=== PATIENT | female | born 1940 | race Caucasian/White ===

== ENCOUNTER → 2018-09-23 13:55 | Outpatient (CLI) | payer MEDICARE, SELFPAY ==
--- NOTE | 2018-09-23 14:00 | BI_ITS ---
MAMMOGRAPHY - BILATERAL SCREENING REASON FOR EXAM: Female, 78 years old. Routine annual screening examination. PERTINENT HISTORY: Non-contributory. TECHNIQUE: Digital bilateral breast anastasia (3D mammographic acquisition) in the CC and MLO projections. 2-D mediolateral oblique (MLO) and craniocaudad (CC) views of both breasts were obtained. CAD: Full Field Digital Mammography with Computer Added Detection was performed. COMPARISON: Comparison is made with prior study dated July 17, 2017 and June 15, 2016. FINDINGS: Breast Composition: The breasts are almost entirely fatty. There are no dominant masses or suspicious calcifications. No other significant abnormalities are identified. There has been no significant change since the prior study. BI/SCREENING MAMM (CAD), BILAT IMPRESSION: Stable bilateral screening mammogram. Yearly follow-up mammogram recommended. (A) ASSESSMENT CATEGORY: BIRADS Category 1: Negative. A letter regarding these results will be sent to the patient by the facility within 30 days. Approximately 10% of breast cancers are not detected by mammography. A normal mammogram should not delay biopsy of a clinically suspicious abnormality. [id number] Electronically Signed: Pérez Cordero MD at 15:56 EST , Service support ,
--- NOTE | 2018-09-23 14:00 | BD_ITS ---
STUDY: DUAL ENERGY X-RAY ABSORPTIOMETRY / DXA REASON FOR EXAM: Female, 78 years old. Early menopause. Loss of height. TECHNIQUE: Bone Mineral Density (BMD) measurements of lumbar spine and bilateral hips were obtained. COMPARISON: Comparison made with prior study dated April 26, 2016. FINDINGS: Lumbar Spine (L1-L4): g/cm2 (1.031) / T-score (-1.4) / Z-score (0.4) Findings are suggestive of osteopenia with a low fracture risk. Left Femur Total: g/cm2 (0.865) / T-score (-1.1) / Z-score (0.9) Left Femoral Neck: g/cm2 (0.905) / T-score (-1.0) / Z-score (1.2) Right Femur Total: g/cm2 (0.839) / T-score (-1.3) / Z-score (0.7) Right Femoral Neck: g/cm2 (0.864) / T-score (-1.2) / Z-score (0.9) The T-Scores on the most recent prior examination were: Lumbar Spine (L1-L4): There has been worsening of bone density since the previous examination. Left Femur Total: which represents a worsening of 3.1%. Right Femur Total: which represents a worsening of 0.8%. BD/Dexa Bone Density Study IMPRESSION: The patient is considered osteopenic as outlined below according to World Gregorio Organization (WHO) criteria with a low fracture risk. There has been worsening of bone density since the previous examination. Reference Information: The T-score is the number of standard deviations above or below the standard which is normal for young adults at their peak bone mineral density. The World Health Organization (WHO) interprets the T-scores as follows: Above -1 Normal bone density Between -1 and -2.5 Osteopenia Equal to / or below -2.5 Osteoporosis As a practical clinical guideline, osteopenia may be graded as follows: Mild -1 through -1.5 Moderate -1.6 through -2.0 Severe -2.1 through -2.4 The Z-score is the number of standard deviations above or below age-matched controls. A Z-score of less than -1.5 would be considered abnormal. References: 1. NIH Osteoporosis and Related Bone Diseases http://www.osteo.org 2. International Society for Clinical Densitometry http://www.iscd.org 3. National Osteoporosis Foundation http://www.nof.org Electronically Signed: Pérez Cordero MD at 14:35 EST , Service support ,
== END ==
PROVIDERS: Family Provider Internal Medicine; PCP Internal Medicine; Referring Provider Internal Medicine; Visit Provider Internal Medicine
DX: Z78.0 Asymptomatic menopausal state (principal); Z12.31 Encounter for screening mammogram for malignant neoplasm of breast
CPT/HCPCS: 77063; 77067; 77080

== ENCOUNTER → 2018-10-10 07:47 | Outpatient (CLI) | payer MEDICARE, SELFPAY ==
[2018-10-10 08:29] LABS: Absolute Lymphocyte Count 2.48 X10^3/ul (0.83-4.51); Basophil# 0.11 X10^3/uL; Basophil% 1.7 % (0-1); Eosinophil# 0.26 X10^3/uL; Eosinophils% 4.1 % (0-5); Hematocrit 43.7 % (37-47); Hemoglobin 13.8 g/dl (12.0-15.0); Lymphocyte # 2.48 X10^3/ul (4.0); Lymphocyte % 39.4 % (19-41); Mean Corp Hgb Conc 31.6 g/gl (32-36); Mean Corpuscular Hgb 30.9 pg (27.0-32.0); Mean Corpuscular Volume 97.8 fL (81-99); Mean Platelet Vol. 9.6 fl (6.2-12.0); Monocyte# 0.42 X10^3/uL; Monocyte% 6.7 % (0-10); Neutrophil # 3.02 X10^3/uL (2.7-7.7); Neutrophil % 48.1 % (47-70); Platelet Count 296 K/mm3 (150-450); RBC Distribution Width CV 13.8 % (11.6-14.6); RBC Distribution Width SD 49.2 fl (35.1-43.9); Red Blood Count 4.47 M/mm3 (4.2-5.4); White Blood Count 6.3 K/mm3 (4.4-11.0)
[2018-10-10 08:34] LABS: POSITIVE COUNT NO; POSITIVE DIFFERENTIAL NO; POSITIVE MORPHOLOGY NO
[2018-10-10 08:56] LABS: ALB/GLOB Ratio 0.9 RATIO (0.9-2.4); AST(SGOT) 15 U/L (15-37); Alanine Aminotransfer ALT/SGPT 16 U/L (13-56); Albumin, Serum 3.6 g/dL (3.2-5.0); Alkaline Phosphatase 90 U/L (45-117); Anion Gap 9 (5-15); BUN 18 mg/dL (7-18); Chloride 106 mmol/L (98-107); EST Glomerular Filtration Rate 57 mL/min (>60); Est Glom Filt Rate - Afr Amer 69 mL/min (>60); Free T3 2.7 pg/mL (2.18-3.98); Globulin 4.2 g/dL (2.2-4.2); Glucose 85 mg/dL (74-106); Protein, Total 7.8 g/dL (6.4-8.2); Sodium Level 143 mmol/L (136-145); T4 Free Direct 1.16 ng/dL (0.76-1.46); Thyroid Stim Hormone (TSH) 2.91 uIU/mL (0.358-3.74)
[2018-10-13 12:07] LABS: CHOLESTEROL TOTAL 241 mg/dL (100-199); HDL-C 71 mg/dL (>39); HDL-P TOTAL 39.4 umol/L (>=30.5); SMALL LDL-P 299 nmol/L (<=527); TRIGLYCERIDES 115 mg/dL (0-149)
[2018-10-13 12:15] LABS: INSULIN RESISTANCE SCORE <25 (<=45); LDL SIZE 21.7 nm (>20.5); LDL-C 147 mg/dL (0-99); LDL-P 1286 nmol/L (<1000)
== END ==
PROVIDERS: Family Provider Internal Medicine; PCP Internal Medicine; Referring Provider Internal Medicine; Visit Provider Internal Medicine
DX: E03.9 Hypothyroidism, unspecified (principal); E78.00 Pure hypercholesterolemia, unspecified; E55.9 Vitamin D deficiency, unspecified
CPT/HCPCS: 36415; 80053; 80061; 82306; 83704; 84439; 84443; 84481; 85025

== ENCOUNTER → 2018-10-29 12:38 | Outpatient (CLI) | payer MEDICARE, SELFPAY ==
--- NOTE | 2018-10-29 12:40 | CDU_ITS ---
Reason For Study: STENOSIS Rt. Velocities/BP Lt. Velocities/BP Prox CCA 75/16 cm/sec. Prox CCA 70/23 cm/sec. Mid CCA 63/15 cm/sec. Mid CCA 65/15 cm/sec. Dist CCA 59/15 cm/sec. Dist CCA 69/20 cm/sec. Prox ICA 43/15 cm/sec. Prox ICA 74/20 cm/sec. Mid ICA 65/20 cm/sec. Mid ICA 72/25 cm/sec. Dist ICA 42/15 cm/sec. Dist ICA 40/14 cm/sec. Rt. ICA/CCA = 1.2. Lt. ICA/CCA = .9. Prox ECA 92/15 cm/sec. Prox ECA 68/12 cm/sec. Rt. Vert. 48/14 cm/sec. Lt. Vert. 41/10 cm/sec. Right Extracranial There is intimal thickening but no significant atherosclerotic plaque noted in the right common carotid artery. There is heterogeneous, irregular atherosclerotic plaque noted in the right internal carotid artery. There is no significant atherosclerotic plaque noted in the right external carotid artery. Antegrade flow is noted in the right vertebral artery. Left Extracranial There is intimal thickening but no significant atherosclerotic plaque noted in the left common carotid artery. There is heterogeneous, irregular atherosclerotic plaque noted in the left internal carotid artery. There is heterogeneous, irregular atherosclerotic plaque noted in the left external carotid artery. Antegrade flow is noted in the left vertebral artery. Procedure Carotid Duplex 19994. Exam performed in department. Interpretation Summary Minimal plague bilateral proximal internal carotids with <50% stenosis. <50% stenosis bilateral external carotids Patent and antegrade vertebrals bilaterally No change from 09/07/15 Ordering Physician: Pooja Edwards Referring Physician: Pooja Edwards Performed By: Radha Bernabe, RDCS, RVT
== END ==
PROVIDERS: Family Provider Internal Medicine; PCP Internal Medicine; Referring Provider Internal Medicine; Visit Provider Internal Medicine
DX: I65.23 Occlusion and stenosis of bilateral carotid arteries (principal)
CPT/HCPCS: 93880

== ENCOUNTER → 2020-04-07 08:36 | Outpatient (CLI) | payer MEDICARE, SELFPAY ==
[2020-04-07 09:26] LABS: Absolute Lymphocyte Count 1.86 X10^3/uL (0.83-4.51); Absolute Neutrophil Count 3.8 X10^3/uL (2.0-7.7); Basophil# 0.12 X10^3/uL; Basophil% 1.8 % (0-1); Eosinophil# 0.34 X10^3/uL; Eosinophils% 5.1 % (0-5); Hematocrit 43.5 % (37-47); Hemoglobin 13.6 g/dL (12.0-15.0); Lymphocyte # 1.86 X10^3/ul (4.0); Lymphocyte % 28.1 % (19-41); Mean Corp Hgb Conc 31.3 g/dL (32-36); Mean Corpuscular Hgb 30.5 pg (27.0-32.0); Mean Corpuscular Volume 97.5 fL (81-99); Mean Platelet Vol. 9.5 fl (6.2-12.0); Monocyte# 0.48 X10^3/uL; Monocyte% 7.3 % (0-10); NRBC Flagged by Analyzer 0 % (0-5); Neutrophil % 57.5 % (47-70); Platelet Count 302 K/mm3 (150-450); RBC Distribution Width CV 13.2 % (11.6-14.6); RBC Distribution Width SD 47.5 fl (35.1-43.9); Red Blood Count 4.46 M/mm3 (4.2-5.4); White Blood Count 6.6 K/mm3 (4.4-11.0)
[2020-04-07 10:08] LABS: ALB/GLOB Ratio 0.8 RATIO (0.9-2.4); AST(SGOT) 19 U/L (15-37); Alanine Aminotransfer ALT/SGPT 15 U/L (13-56); Albumin, Serum 3.5 g/dL (3.2-5.0); Alkaline Phosphatase 93 U/L (45-117); Anion Gap 4 (5-15); BUN 20 mg/dL (7-18); BUN/Creat Ratio 18.5 RATIO (10-20); Calcium,Total 9.1 mg/dL (8.5-10.1); Chloride 105 mmol/L (98-107); Cholesterol 219 mg/dL (200); Creatinine, Serum 1.08 mg/dL (0.55-1.02); EST Glomerular Filtration Rate 52 mL/min (>60); Est Glom Filt Rate - Afr Amer 63 mL/min (>60); Globulin 4.5 g/dL (2.2-4.2); Glucose 87 mg/dL (74-106); High Density Lipoprotein 71 mg/dL; Potassium 3.8 mmol/L (3.5-5.1); Sodium Level 139 mmol/L (136-145); Thyroid Stim Hormone (TSH) 2.95 uIU/mL (0.358-3.74); Triglycerides 116 mg/dL; Very Low Density Lipoprotein 23 mg/dL (5-40)
[2020-04-07 10:16] LABS: Vitamin D,25 Hydroxy 97.3 ng/mL
== END ==
PROVIDERS: PCP Internal Medicine; Referring Provider Internal Medicine; Visit Provider Internal Medicine
DX: E03.9 Hypothyroidism, unspecified (principal); E55.9 Vitamin D deficiency, unspecified; E78.00 Pure hypercholesterolemia, unspecified; J44.9 Chronic obstructive pulmonary disease, unspecified
CPT/HCPCS: 36415; 80053; 80061; 82306; 84443; 85025

== ENCOUNTER → 2021-02-28 10:49 | Outpatient (CLI) | payer MEDICARE, SELFPAY ==
--- NOTE | 2021-02-28 10:51 | BI_ITS ---
MAMMOGRAPHY - BILATERAL SCREENING REASON FOR EXAM: Female, 80 years old. Routine annual screening examination. PERTINENT HISTORY: Non-contributory. TECHNIQUE: Digital bilateral breast windy (3D mammographic acquisition) in the CC and MLO projections. 2-D mediolateral oblique (MLO) and craniocaudad (CC) views of both breasts were obtained. CAD: Full Field Digital Mammography with Computer Added Detection was performed. COMPARISON: Comparison is made with prior study dated 09/23/2018 and 07/17/2017. FINDINGS: Breast Composition: The breasts are almost entirely fatty. There are no dominant masses or suspicious calcifications. No other significant abnormalities are identified. There has been no significant change since the prior study. BI/SCRN MAMM (CAD)W/WINDY BILAT IMPRESSION: Stable bilateral screening mammogram. Yearly follow-up mammogram recommended. (A) ASSESSMENT CATEGORY: BIRADS Category 1: Negative. A letter regarding these results will be sent to the patient by the facility within 30 days. Approximately 10% of breast cancers are not detected by mammography. A normal mammogram should not delay biopsy of a clinically suspicious abnormality. [id number] Electronically Signed: Pérez Cordero MD at 11:50 EDT , Service support ,
--- NOTE | 2021-02-28 10:59 | BD_ITS ---
STUDY: DUAL ENERGY X-RAY ABSORPTIOMETRY / DXA REASON FOR EXAM: Female, 80 years old. Z780. The patient is postmenopausal. TECHNIQUE: Bone Mineral Density (BMD) measurements of lumbar spine and bilateral hips were obtained. COMPARISON: Comparison is made with prior study dated 09/23/2018 and 04/26/2016. FINDINGS: Lumbar Spine (L1-L4): g/cm2 (0.872) / T-score (-1.6) / Z-score (1.2) Findings are suggestive of osteopenia with a moderate fracture risk. Left Femur Total: g/cm2 (0.758) / T-score (-1.5) / Z-score (0.7) Left Femoral Neck: g/cm2 (0.712) / T-score (-1.2) / Z-score (1.2) Right Femur Total: g/cm2 (0.763) / T-score (-1.5) / Z-score (0.8) Right Femoral Neck: g/cm2 (0.695) / T-score (-1.4) / Z-score (1.0) The T-Scores on the most recent prior examination were: Lumbar Spine (L1-L4): There has been worsening of bone density since the previous examination. Left Femur Total: which represents a worsening of 5.6%. Right Femur Total: which represents a worsening of 1.8%. BD/Dexa Bone Density Study IMPRESSION: The patient is considered osteopenic as outlined below according to World Gregorio Organization (WHO) criteria with a moderate fracture risk. There has been worsening of bone density since the previous examination. Reference Information: The T-score is the number of standard deviations above or below the standard which is normal for young adults at their peak bone mineral density. The World Health Organization (WHO) interprets the T-scores as follows: Above -1 Normal bone density Between -1 and -2.5 Osteopenia Equal to / or below -2.5 Osteoporosis As a practical clinical guideline, osteopenia may be graded as follows: Mild -1 through -1.5 Moderate -1.6 through -2.0 Severe -2.1 through -2.4 The Z-score is the number of standard deviations above or below age-matched controls. A Z-score of less than -1.5 would be considered abnormal. References: 1. NIH Osteoporosis and Related Bone Diseases www osteo.org 2. International Society for Clinical Densitometry www iscd.org 3. National Osteoporosis Foundation www nof.org Electronically Signed: Pérez Cordero MD at 14:42 EDT , Service support ,
== END ==
PROVIDERS: PCP Internal Medicine; Referring Provider Internal Medicine; Visit Provider Internal Medicine
DX: Z78.0 Asymptomatic menopausal state (principal); Z12.31 Encounter for screening mammogram for malignant neoplasm of breast
CPT/HCPCS: 77063; 77067; 77080

== ENCOUNTER → 2021-03-14 11:27 | Outpatient (CLI) | payer MEDICARE, SELFPAY ==
[2021-03-14 11:48] LABS: Potassium 4.8 mmol/L (3.5-5.1)
== END ==
PROVIDERS: PCP Internal Medicine; Visit Provider Internal Medicine
DX: E87.5 Hyperkalemia (principal)
CPT/HCPCS: 84132

== ENCOUNTER → 2021-03-21 12:46 | Outpatient (CLI) | payer MEDICARE, SELFPAY ==
--- NOTE | 2021-03-21 12:51 | CDU_ITS ---
Reason For Study: Bilateral carotid artery stenosis Rt. Velocities/BP Lt. Velocities/BP Prox CCA 68.2/13.4 cm/sec. Prox CCA 69.5/16.8 cm/sec. Mid CCA 59.1/13.4 cm/sec. Mid CCA 59.6/14.6 cm/sec. Dist CCA 52.5/13.4 cm/sec. Dist CCA 48.7/13.5 cm/sec. Prox ICA 46/14.7 cm/sec. Prox ICA 66.2/19 cm/sec. Mid ICA 70.8/26.5 cm/sec. Mid ICA 50.4/15.4 cm/sec. Dist ICA 56.5/18.6 cm/sec. Dist ICA 66.4/23 cm/sec. Rt. ICA/CCA = 1.2. Lt. ICA/CCA = 1.1. Prox ECA 65.6/9.5 cm/sec. Prox ECA 55.2/10.2 cm/sec. Rt. Vert. 53.1/15.7 cm/sec. Lt. Vert. 49.4/11.6 cm/sec. Right Extracranial There is homogeneous, smooth atherosclerotic plaque noted in the right common carotid artery. There is heterogeneous, irregular atherosclerotic plaque noted in the right internal carotid artery. There is intimal thickening but no significant atherosclerotic plaque noted in the right external carotid artery. Antegrade flow is noted in the right vertebral artery. Left Extracranial There is intimal thickening but no significant atherosclerotic plaque noted in the left common carotid artery. There is heterogeneous, irregular atherosclerotic plaque noted in the left internal carotid artery. There is heterogeneous, irregular atherosclerotic plaque noted in the left external carotid artery. Antegrade flow is noted in the left vertebral artery. Procedure Carotid Duplex [id number]. This is a Carotid Duplex examination using B-mode, color flow and specral Doppler. Exam performed in department. VL/Carotid Duplex Ultrasound Interpretation Summary Irregular calcific plaque at the proximal right internal carotid artery with le ss than 50% stenosis. Less than 50% stenosis right external carotid artery Irregular heterogenous plaque in the proximal left internal carotid artery with a less than 50% stenosis. Less than 50% stenosis left external carotid artery Patent and antegrade vertebral arteries bilaterally No change from October 29, 2018 Ordering Physician: Pooja Edwards Referring Physician: Pooja Edwards Performed By: Nimo Montana RVT
== END ==
PROVIDERS: PCP Internal Medicine; Referring Provider Internal Medicine; Visit Provider Internal Medicine
DX: I65.23 Occlusion and stenosis of bilateral carotid arteries (principal)
CPT/HCPCS: 93880

== ENCOUNTER 2021-09-30 10:29 | Observation (INO) | payer MEDICARE, SELFPAY ==
[2021-09-30] VITALS (14 sets, daily range): BP systolic 83–213; BP diastolic 48–110; PULSE 68–110; RESP 16–18; TEMP 36.6–36.8; O2SAT 95–98; BMI 17.8
--- NOTE | 2021-09-30 10:51 | CT_ITS ---
HISTORY: Dizziness. TECHNIQUE: Multiple axial images were obtained of the brain without intravenous contrast. A radiation dose optimization technique was used for this scan. # of images incl. paperwork: 232. COMPARISON: None. FINDINGS: BRAIN PARENCHYMA:Multiple small foci and zones of low attenuation in the cerebral white matter most compatible with chronic small vessel ischemic gliosis. INTRACRANIAL HEMORRHAGE: No acute intracranial hemorrhage. CSF SPACES/MASS EFFECT: Diffuse atrophy with compensatory ventricular enlargement. No midline shift or other significant mass effect. ORBITS: Bilateral lens resections. CALVARIUM: Intact. PARANASAL SINUSES AND MASTOID AIR CELLS: Clear. CT/Brain/Head without Contrast IMPRESSION: No acute intracranial process identified. Chronic small vessel ischemic gliosis. Individualized dose optimization techniques were used for this CT. at 1124 Reported and signed by: Ariana Simms MD Electronically Signed: Ariana Simms MD at 11:23 EST ,
--- NOTE | 2021-09-30 10:52 | EKG12_ITS ---
Test Reason : Blood Pressure : / mmHG Vent. Rate : 067 BPM Atrial Rate : 067 BPM P-R Int : 112 ms QRS Dur : 074 ms QT Int : 438 ms P-R-T Axes : 070 -10 076 degrees QTc Int : 462 ms Sinus rhythm with Premature atrial complexes in a pattern of bigeminy Otherwise normal ECG Confirmed by VALERIE العلي, JAYLAN ([id number]), brands editor STEVEN ERICKSON ([id number]) on 10/02/2021 12:18:48 PM Referred By: MEL Confirmed By:JAYLAN PADILLA MD
--- NOTE | 2021-09-30 10:54 | EDS_ITS ---
HPI History of Present Illness Chief Complaint: Dizziness Informant: patient Onset/Context/Timing Onset: Month(s) Context: Sudden Onset Timing: Intermittent Current Severity: Mild Maximum Severity: Moderate Narrative Narrative: 81-year-old female states the last year she has had episodes of dizziness. She states she gets warm all over the room starts spinning and she is unable to ambulate. At times she has trouble focusing her eyes when this occurs. She has never had a stroke or mini stroke. She is never been formally diagnosed with vertigo. She has not had a formal work-up for this that she remembers. She denies any trouble moving her arms or legs. She denies any weakness or numbness. She denies any headache. At times she gets so dizzy she has fallen. Prior similar symptoms: Yes Recent Illness/Hospitalization: No PFSH PFS Medical History (Updated 09/30/21 @ 12:[address] Daniel Finch MD) Hypothyroidism Home Medications aspirin [Aspir-81] 81 mg PO DAILY 09/30/21 [History Last Taken Unknown] ergocalciferol (vitamin D2) 2,000 unit PO DAILY 09/30/21 [History Last Taken Unknown] levothyroxine [Synthroid] 50 mcg PO DAILY 09/30/21 [History Last Taken Unknown] meclizine 25 mg PO TID PRN #14 tab 09/30/21 [Rx Last Taken Unknown] ondansetron 4 mg PO Q6H PRN #7 tab 09/30/21 [Rx Last Taken Unknown] Allergy/AdvReac Type Severity Reaction Status Date / Time No Known Allergies Allergy Verified 09/30/21 10:33 Social History Smoking Status: Never smoker ROS ROS ED ROS Narrative No recent illness. Review of Systems ROS Unobtainable: Denies due to encephalopathy Constitutional Constitutional ED: Denies fever(s) Eyes Eyes: Denies change in vision ENT ENT ED: Denies ear pain Cardiovascular Cardiovascular: Denies chest pain Respiratory/Chest Respiratory/Chest: Denies dyspnea Gastrointestinal Gastrointestinal: Denies abdominal pain Genitourinary Genitourinary ED: Denies dysuria Musculoskeletal Musculoskeletal: Denies myalgias Integumentary Denies rash Neurologic Neurologic: Denies headache(s) Psychiatric Psychiatric: Denies depression Endocrine Endocrinology: Denies polyuria Allergic/Immunologic Allergic/Immunologic ED: Denies urticaria EXAM Physical Exam Narrative Exam Narrative: 81-year-old female no acute distress. Vital signs stable blood pressure is elevated 181/93. H EENT exam unremarkable. No facial droop. Normal speech. Neck nontender. No bruits appreciated. Lungs clear to auscultation bilaterally. Heart regular rate and rhythm no murmur rate of 75. Abdomen is no signs. Moving all 4 extremities. Calves are nontender without edema or cords. Back nontender. Neurologically she is awake and alert with no focal motor deficits. NIH score is 0. Const Vital Signs: 09/30/21 10:30 09/30/21 11:58 09/30/21 12:05 Temperature 97.9 F Temperature Source Temporal Pulse Rate 75 Pulse Rate [Lying] 70 Pulse Rate [Sitting] 80 Pulse Rate [Standing] 97 Respiratory Rate 18 Respiratory Pattern Normal Blood Pressure 181/93 H Blood Pressure [Lying] 177/94 H Blood Pressure [Sitting] 191/92 H Blood Pressure [Standing] 150/94 H Blood Pressure Mean 122 Blood Pressure Mean [Lying] 121 Blood Pressure Mean [Sitting] 125 Blood Pressure Mean [Standing] 112 Pulse Ox 96 Oxygen Delivery Method Room Air 09/30/21 12:56 Temperature Temperature Source Pulse Rate 77 Pulse Rate [Lying] Pulse Rate [Sitting] Pulse Rate [Standing] Respiratory Rate 16 Respiratory Pattern Blood Pressure 181/88 H Blood Pressure [Lying] Blood Pressure [Sitting] Blood Pressure [Standing] Blood Pressure Mean 119 Blood Pressure Mean [Lying] Blood Pressure Mean [Sitting] Blood Pressure Mean [Standing] Pulse Ox 95 Oxygen Delivery Method Room Air Positive well nourished and well developed; Negative for obese, cachectic, contractures or unkempt General Appearance ED: well developed and NAD; Negative for unkempt, cachectic, contractures, cyanotic, diaphoretic or pallor Nutritional Appearance: Negative for cachectic or obese HEENT Reports moist mucous membranes Negative for trauma or tenderness Eyes PERRL and EOMs intact bilaterally Neck no lymphadenopathy, supple and no JVD General: Negative for tenderness Chest Wall inspection of chest normal and palpation of chest normal Resp normal respiratory effort and clear to auscultation bilaterally Effort and Inspection: Negative for pain with movement Auscultation: Negative for rales, rhonchi or wheezes Cardio regular rate, regular rhythm, S1 normal heart sound, S2 normal heart sound and no murmurs GI normal to inspection, nondistended, normoactive bowel sounds, non-tender, non- distended and no masses Inspection: Negative for abdominal distention Auscultation: normoactive bowel sounds Palpation: soft; Negative for tender, guarding or rebound tenderness present Back/Spine no CVA tenderness Cervical Spine: Negative for cervical spine tenderness Thoracic Spine / Upper Back: Negative for thoracic spinal tenderness or paraspinal muscle tenderness Extremity normal to inspection General Extremety ED: Negative for edema or tenderness General Extremity: Negative for edema Neuro oriented x3 and CN's II-XII intact bilaterally Neuro Narrative: Hallpike maneuver really does not cause her significant symptoms at this time. Sensorium / Orientation: alert; Negative for orientation impaired, lethargic or stuporous Motor Exam: strength 5/5 throughout Psych mental status grossly normal Appearance: Negative for unkempt Attitude: No agitated Mood & Affect: Negative for depressed or tearful Skin no rashes or lesions noted and no wounds General Skin Exam: Negative for jaundice or pallor MDM MDM MDM Narrative Medical decision making narrative: 81-year-old female for last year has had transient episodes of dizziness. Her exam is benign. Currently her symptoms are very very mild. She has a normal neurologic exam. Her Hallpike maneuvers really not significant. CAT scan and labs are being obtained. Repeat exam patient is doing well at noon. She is having nausea she will be given IV Zofran and a dose of Antivert and then will attempt to ambulate the patient. Her work-up is negative. This will be treated as vertigo. Repeat exam patient does not recall to being discharged home notice her family are concerned she is a fall risk and has difficulty ambulating when she gets a vertiginous symptoms. I spoke to the hospitalist she will be observation admission to the PCU. Lab Data Attestation: I reviewed the patient's lab results. Lab results narrative: CBC normal. White count of 7. H&H of 14 and 43. Electrolytes normal gap of 4. BUN 26 creatinine 0.97. Glucose 106. Patient's elevated BUN and normal creatinine may be consistent with an early mild dehydration. Labs: Laboratory Results - last 24 hr 09/30/21 09/30/21 10:35 10:35 WBC 7.1 RBC 4.57 Hgb 14.6 Hct 43.6 MCV 95.4 MCH 31.9 MCHC 33.5 RDW Std Deviation 46.6 H RDW Coeff of Stephanie 13.2 Plt Count 329 MPV 9.7 Immature Gran % (Auto) 0.300 Neut % (Auto) 69.1 Lymph % (Auto) 21.6 [place] % (Auto) 5.7 Eos % (Auto) 2.2 Baso % (Auto) 1.1 H Absolute Neuts (auto) 4.9 Absolute Lymphs (auto) 1.54 Nucleated RBC % 0 Sodium 140 Potassium 4.4 Chloride 105 Carbon Dioxide 31.0 Anion Gap 4 L BUN 26 H Creatinine 0.97 Estim Creat Clear Calc 37.95 Est GFR (MDRD) Af Amer 70 Est GFR (MDRD) Non-Af 58 L BUN/Creatinine Ratio 26.7 H Glucose 106 Calcium 9.9 Radiography Diagnostic Testing: Clinical Impression(s) from Imaging Studies Brain CT 09/30/21 10:51 IMPRESSION: No acute intracranial process identified. Chronic small vessel ischemic gliosis. Individualized dose optimization techniques were used for this CT. at 1124 Reported and signed by: Ariana Simms MD Electronically Signed: Ariana Simms MD at 11:23 EST , ADDENDUM: 09/30/21 1240 IMPRESSION: No acute intracranial process identified. Chronic small vessel ischemic gliosis. Individualized dose optimization techniques were used for this CT. at 1124 Reported and signed by: Ariana Simms MD Electronically Signed: Ariana Simms MD at 11:23 EST , CAT scan of the brain without contrast is read by the radiologist and reviewed by me shows no acute abnormality. Rhythm Strip Rhythm Strip: Sinus Rhythm Rate: 67 Ectopy: PAC(s) EKG Initial EKG: Attestation: I personally reviewed and interpreted this EKG as follows: Interpretation: Sinus Rhythm and No Acute Injury Pattern Comments: Normal sinus rhythm rate of 67. PACs. No significant signs of RI nor ischemia. Prior EKG tracings: not available for review Discharge Plan Triage Chief Complaint: Dizziness ED Provider: Daniel Finch Dx/Rx/DC Orders Clinical Impression: Vertigo Instructions: ED BPV Vertigo Prescriptions: New meclizine 25 mg tablet 25 mg PO TID PRN (Reason: dizziness) Qty: 14 RF: 0 ondansetron 4 mg tablet,disintegrating 4 mg PO Q6H PRN (Reason: nausea and vomiting) Qty: 7 RF: 0 No Action aspirin [Aspir-81] 81 mg Tablet,Delayed Release (Dr/Ec) 81 mg PO DAILY RF: 0 levothyroxine [Synthroid] 50 mcg tablet 50 mcg PO DAILY RF: 0 ergocalciferol (vitamin D2) 1,000 unit Capsule 2,000 unit PO DAILY RF: 0 Primary Care Provider: Pooja Edwards Referrals: Pooja Edwards DO [Primary Care Provider] - 3-5 Days Activity Restrictions/Additional Instructions: Plenty of fluids and rest. Zofran as needed for nausea which you may swallow or let it dissolve under your tongue. Antivert as needed for the dizziness. I would use 1 pill 3 times a day for the next 3 days and then take it as needed. Follow-up with your doctor return emergency department if you are worse. Disposition Disposition: Home, Self Care
[2021-09-30 11:05] LABS: Absolute Lymphocyte Count 1.54 X10^3/uL (0.83-4.51); Absolute Neutrophil Count 4.9 X10^3/uL (2.0-7.7); Basophil# 0.08 X10^3/uL; Basophil% 1.1 % (0-1); Eosinophil# 0.16 X10^3/uL; Eosinophils% 2.2 % (0-5); Hematocrit 43.6 % (37-47); Hemoglobin 14.6 g/dL (12.0-15.0); Lymphocyte # 1.54 X10^3/ul (0.83-4.51); Lymphocyte % 21.6 % (19-41); Mean Corp Hgb Conc 33.5 g/dL (32-36); Mean Corpuscular Hgb 31.9 pg (27.0-32.0); Mean Corpuscular Volume 95.4 fL (81-99); Mean Platelet Vol. 9.7 fl (6.2-12.0); Monocyte# 0.41 X10^3/uL; Monocyte% 5.7 % (0-10); NRBC Flagged by Analyzer 0 % (0-5); Neutrophil # 4.93 X10^3/uL (2.7-7.7); Neutrophil % 69.1 % (47-70); Platelet Count 329 K/mm3 (150-450); RBC Distribution Width CV 13.2 % (11.6-14.6); RBC Distribution Width SD 46.6 fl (35.1-43.9); Red Blood Count 4.57 M/mm3 (4.2-5.4); White Blood Count 7.1 K/mm3 (4.4-11.0)
[2021-09-30 11:10] LABS: Anion Gap 4 (5-15); BUN 26 mg/dL (7-18); BUN/Creat Ratio 26.7 RATIO (10-20); Calcium,Total 9.9 mg/dL (8.5-10.1); Chloride 105 mmol/L (98-107); Creatinine, Serum 0.97 mg/dL (0.55-1.02); EST Glomerular Filtration Rate 58 mL/min (>60); Est Glom Filt Rate - Afr Amer 70 mL/min (>60); Estimated Creatinine Clearance 37.95 ml/min; Glucose 106 mg/dL (74-106); Potassium 4.4 mmol/L (3.5-5.1); Sodium Level 140 mmol/L (136-145)
[2021-09-30] MEDS: Ondansetron 4 MG/2 ML Vial IV (12:09)
[2021-09-30] MEDS: Meclizine HCl 25 MG Tablet PO (12:09)
--- NOTE | 2021-09-30 13:49 | HP.PCM.HOS_ITS ---
HPI - General General Date of Admission: 09/30/21 HPI Narrative LATOYA ANDERSON, is a 81 F with a PMh as outlined who presents with a complaint of dizziness. Dizziness started ~ 1 year ago, and says she gets warm over, and then the room starts spinning and she is unable to ambulate. She has never had a stroke or TIA, and says she has never been diagnosed with vertigo. Patient admitted to not eating and drinking well and this was corroborated by her [id number]. She is lost a lot of weight over the last year because she simply does not feel like eating or drinking. She hasnt been worked up for this vertigo before. She has had numerous falls over the last year and says she usually falls when she stands for a while and then feels dizzy.. She denied any numbness or tingling in any extremities or any weakness in any extremities. Vitals in the ED were blood pressure 181/88 with pulse rate of 77 and respiratory of 16 and she was saturating at 95% on room air. CBC and BMP were essentially unremarkable. CT of the brain showed no acute intracranial pathology. She has been admitted to manage for dizziness and vertigo likely due to dehydration and orthostatic hypotension with BPPV also a consideration. [facility] Medical History (Updated 09/30/21 @ 12:[address] Daniel Finch MD) Hypothyroidism Home Medications aspirin [Aspir-81] 81 mg PO DAILY 09/30/21 [History Last Taken Unknown] ergocalciferol (vitamin D2) 2,000 unit PO DAILY 09/30/21 [History Last Taken Unknown] levothyroxine [Synthroid] 50 mcg PO DAILY 09/30/21 [History Last Taken Unknown] meclizine 25 mg PO TID PRN #14 tab 09/30/21 [Rx Last Taken Unknown] ondansetron 4 mg PO Q6H PRN #7 tab 09/30/21 [Rx Last Taken Unknown] Allergy/AdvReac Type Severity Reaction Status Date / Time No Known Allergies Allergy Verified 09/30/21 10:33 Social History Smoking Status: Never smoker ROS Constitutional Constitutional: Reports chills; Denies anorexia, fatigue, fever(s), malaise or weakness Eyes Eyes: Denies blurry vision or change in vision ENT HEENT: Denies dysphagia, headache(s), nasal congestion or nasal discharge Cardiovascular Cardiovascular: Denies chest pain, dyspnea on exertion, lightheadedness, or thopnea, palpitations, paroxysmal nocturnal dyspnea, rapid heart rate or syncope Respiratory/Chest Respiratory/Chest: Denies cough or dyspnea Gastrointestinal Gastrointestinal: Reports nausea; Denies abdominal pain, coffee ground emesis, constipation, diarrhea or vomiting Genitourinary Genitourinary: Denies burning urination Musculoskeletal Musculoskeletal: Denies back pain, joint pain or joint stiffness Neurologic Neurologic: Reports dizziness; Denies confusion, focal weakness, headache(s), numbness, paresthesias, seizure-like activity, seizures or syncope Psychiatric Psychiatric: Denies anxiety or depression Allergic/Immunologic Allergic/Immunologic: Denies asthma Vital Signs Vital Signs Vital Signs: 09/30/21 10:30 09/30/21 11:58 09/30/21 12:05 Temperature 97.9 F Temperature Source Temporal Pulse Rate 75 Pulse Rate [Lying] 70 Pulse Rate [Sitting] 80 Pulse Rate [Standing] 97 Respiratory Rate 18 Respiratory Pattern Normal Blood Pressure 181/93 H Blood Pressure [Lying] 177/94 H Blood Pressure [Sitting] 191/92 H Blood Pressure [Standing] 150/94 H Blood Pressure Mean 122 Blood Pressure Mean [Lying] 121 Blood Pressure Mean [Sitting] 125 Blood Pressure Mean [Standing] 112 Pulse Ox 96 Oxygen Delivery Method Room Air 09/30/21 12:56 Temperature Temperature Source Pulse Rate 77 Pulse Rate [Lying] Pulse Rate [Sitting] Pulse Rate [Standing] Respiratory Rate 16 Respiratory Pattern Blood Pressure 181/88 H Blood Pressure [Lying] Blood Pressure [Sitting] Blood Pressure [Standing] Blood Pressure Mean 119 Blood Pressure Mean [Lying] Blood Pressure Mean [Sitting] Blood Pressure Mean [Standing] Pulse Ox 95 Oxygen Delivery Method Room Air Weight Weight: 120 lb 9.486 oz Body Mass Index (BMI) 20.0 Physical Exam Const alert, oriented x3 and no apparent distress General Appearance: cooperative HEENT normocephalic, head/scalp atraumatic and hearing grossly normal bilaterally HEENT Narrative: very dry oral mucosa Eyes PERRL, EOMs intact bilaterally and conjunctivae normal Neck no lymphadenopathy and supple Resp normal respiratory effort, no retractions, no use of accessory muscles and clear to auscultation bilaterally Cardio regular rate, regular rhythm, S1 normal heart sound and S2 normal heart sound GI normal to inspection, nondistended, normoactive bowel sounds, soft to palpation, non-tender and non-distended Extremity normal to inspection, full ROM and no clubbing, cyanosis or edema Peripheral Pulses: Yes pulses 2+ throughout Skin no rashes or lesions noted Neuro oriented x3, CN's II-XII intact bilaterally and moves all extremities Sensorium / Orientation: awake and alert Psych affect normal Results Lab / Micro Data Result Diagrams: 09/30/21 10:35 09/30/21 10:35 Labs: Laboratory Results - last 24 hr 09/30/21 10:35: WBC 7.1, RBC 4.57, Hgb 14.6, Hct 43.6, MCV 95.4, MCH 31.9, MCHC 33.5, RDW Std Deviation 46.6 H, RDW Coeff of Stephanie 13.2, Plt Count 329, MPV 9.7, Immature Gran % (Auto) 0.300, Neut % (Auto) 69.1, Lymph % (Auto) 21.6, [place] % (Auto) 5.7, Eos % (Auto) 2.2, Baso % (Auto) 1.1 H, Absolute Neuts (auto) 4.9, Absolute Lymphs (auto) 1.54, Nucleated RBC % 0 09/30/21 10:35: Sodium 140, Potassium 4.4, Chloride 105, Carbon Dioxide 31.0, Anion Gap 4 L, BUN 26 H, Creatinine 0.97, Estim Creat Clear Calc 37.95, Est GFR (MDRD) Af Amer 70, Est GFR (MDRD) Non-Af 58 L, BUN/Creatinine Ratio 26.7 H, Glucose 106, Calcium 9.9 Rhythm Strip Rhythm Strip: Sinus Rhythm Rate: 67 Ectopy: PAC(s) Radiology Impression Brain CT 09/30/21 10:51 IMPRESSION: No acute intracranial process identified. Chronic small vessel ischemic gliosis. Individualized dose optimization techniques were used for this CT. at 1124 Reported and signed by: Ariana Simms MD Electronically Signed: Ariana Simms MD at 11:23 EST Reading Location ID and State: [facility] / [place] Tel , Service support , ADDENDUM: 09/30/21 1240 IMPRESSION: No acute intracranial process identified. Chronic small vessel ischemic gliosis. Individualized dose optimization techniques were used for this CT. at 1124 Reported and signed by: Ariana Simms MD Electronically Signed: Ariana Simms MD at 11:23 EST , Assessment & Plan Assessment/Plan (1) Vertigo: PLAN: #Dizziness and vertigo likely due to dehydration, decreased intake and orthostatic hypotension * CT of the brain showed no acute intracranial process but showed chronic small vessel ischemic gliosis * This has been going on for 2 years and this current episode was similar to previous episodes was less likely due to a stroke * Admit to PCU * Consult PT OT. Fall precautions. * check orthostatics * On meclizine. We will continue. * She did have a carotid duplex in March 2021 which showed irregular calcific plaque at the proximal right internal carotid artery with less than 50% stenosis and less than 50% stenosis of the right external carotid artery and an irregular heterogeneous plaque in the proximal left internal carotid artery with less than 50% stenosis and less than 50% stenosis of the left external carotid artery with patent and antegrade vertebral arteries bilaterally and no change from carotid ultrasound in October 2018. * IV Zofran as needed * #Hypothyroidism: On Synthroid #Nicotine dependence: * Says she has been smoking less than a pack a day since she was 15 years. * Nicotine patch 14 mg daily. Counseled to quit. DVT prophylaxis: Lovenox CODE STATUS: DNR CCA no intubation * Patient counseled extensively about different types of CODE STATUS including full code, DNR CCA and DNR CCA. Patient elects to be DNRCCA no intubation, and says she has filled out paperwork for this previously already. * Total [id number] time 16 minutes. Charges/Coding Visit Charges OBSV E&M: 20866 Initial observation care L2 [facility] Codes Hospitalists' Procedures Procedures: 29005 Advncd Care Plan 30 Min
[2021-09-30] MEDS: 0.9% Normal Saline 1,000 ML 75 ML IV (16:18)
[2021-09-30] MEDS: Clonidine HCl 0.1 MG, Clonidine HCl 0.2 MG 0.3 MG PO (17:22)
[2021-09-30] MEDS: 0.9% Saline Lock 10 ML Syringe IV (17:22)
[2021-09-30] MEDS: amLODIPine 10 MG Tablet PO (17:22)
--- NOTE | 2021-09-30 17:30 | NURSING ---
Patient's daughter Bienvenido Devlin is okay to receive updates on patient status; Phone number is [phone]
[2021-09-30] MEDS: 0.9% Normal Saline 1,000 ML 125 ML IV (21:08)
[2021-10-01] VITALS (10 sets, daily range): BP systolic 94–155; BP diastolic 62–90; PULSE 57–90; RESP 16; TEMP 36.3–36.9; O2SAT 94–98
[2021-10-01] MEDS: Levothyroxine 50 MCG Tablet PO (06:04)
[2021-10-01 06:20] LABS: Absolute Lymphocyte Count 2.03 X10^3/uL (0.83-4.51); Absolute Neutrophil Count 3.2 X10^3/uL (2.0-7.7); Basophil# 0.06 X10^3/uL; Eosinophil# 0.28 X10^3/uL; Eosinophils% 4.7 % (0-5); Hemoglobin 11.5 g/dL (12.0-15.0); Lymphocyte # 2.03 X10^3/ul (0.83-4.51); Lymphocyte % 33.7 % (19-41); Mean Corp Hgb Conc 31.9 g/dL (32-36); Mean Corpuscular Hgb 30.8 pg (27.0-32.0); Mean Corpuscular Volume 96.5 fL (81-99); Mean Platelet Vol. 10.5 fl (6.2-12.0); Monocyte% 8.3 % (0-10); NRBC Flagged by Analyzer 0 % (0-5); Neutrophil # 3.15 X10^3/uL (2.7-7.7); Neutrophil % 52.3 % (47-70); Platelet Count 236 K/mm3 (150-450); RBC Distribution Width CV 13.5 % (11.6-14.6); RBC Distribution Width SD 48.2 fl (35.1-43.9); Red Blood Count 3.73 M/mm3 (4.2-5.4)
[2021-10-01 06:37] LABS: Anion Gap 2 (5-15); BUN 26 mg/dL (7-18); Calcium,Total 8.2 mg/dL (8.5-10.1); Chloride 112 mmol/L (98-107); Creatinine, Serum 0.84 mg/dL (0.55-1.02); EST Glomerular Filtration Rate 69 mL/min (>60); Est Glom Filt Rate - Afr Amer 83 mL/min (>60); Estimated Creatinine Clearance 38.85 ml/min; Glucose 79 mg/dL (74-106); Potassium 4.2 mmol/L (3.5-5.1); Sodium Level 138 mmol/L (136-145)
[2021-10-01] MEDS: Aspirin E.C. 81 MG Tablet PO (08:48)
[2021-10-01] MEDS: Enoxaparin 40 MG/0.4 ML Syringe SC (08:49)
[2021-10-01] MEDS: Cholecalciferol (VIT D3) 25 MCG TABLET (1,000 UNITS) 50 MCG PO (08:49)
--- NOTE | 2021-10-01 11:57 | PN.HOSP_ITS ---
Subjective Subjective Patient seen and examined. She had no active events overnight and felt well. Review of symptoms otherwise negative. Her orthostatics were positive yesterday and she was hydrated with IV fluids. Her blood pressure was markedly elevated in the 200 systolic so she was given a clonidine tablet of 0.3 mg x 1 and was started on p.o. amlodipine 10 mg daily. However her blood pressure plummeted to the 80s and 90s systolic. Amlodipine therefore on hold. Review of systems otherwise negative. Objective Data Objective Data Vital Signs: Vital Signs Temp Pulse Resp BP Pulse Ox 98.4 F 68 16 94/62 97 10/01/21 08:50 10/01/21 08:50 10/01/21 08:50 10/01/21 08:50 10/01/21 08:50 Oxygen Delivery Method Room Air Weight: 106 lb 14.787 oz Body Mass Index (BMI) 17.8 Intake & Output: Intake and Output for Last 24 Hours 09/29/21 09/30/21 10/01/21 23:59 23:59 23:59 Intake Total 1600.00 / 1600.00 1240 / 1240 Balance 1600.00 / 1600.00 1240 / 1240 Lab / Micro Data Result Diagrams: 10/01/21 05:28 10/01/21 05:28 Labs: Laboratory Results - last 24 hr 10/01/21 05:28: WBC 6.0, RBC 3.73 L, Hgb 11.5 L, Hct 36.0 L, MCV 96.5, MCH 30.8, MCHC 31.9 L, RDW Std Deviation 48.2 H, RDW Coeff of Stephanie 13.5, Plt Count 236, MPV 10.5, Immature Gran % (Auto) 0.000, Neut % (Auto) 52.3, Lymph % (Auto) 33.7, [place] % (Auto) 8.3, Eos % (Auto) 4.7, Baso % (Auto) 1.0, Absolute Neuts (auto) 3.2, Absolute Lymphs (auto) 2.03, Nucleated RBC % 0 10/01/21 05:28: Sodium 138, Potassium 4.2, Chloride 112 H, Carbon Dioxide 24.0, Anion Gap 2 L, BUN 26 H, Creatinine 0.84, Estim Creat Clear Calc 38.85, Est GFR (MDRD) Af Amer 83, Est GFR (MDRD) Non-Af 69, BUN/Creatinine Ratio 31.0 H, Glucose 79, Calcium 8.2 L Radiography Diagnostic Testing: Radiology Impression Brain CT 09/30/21 10:51 IMPRESSION: No acute intracranial process identified. Chronic small vessel ischemic gliosis. Individualized dose optimization techniques were used for this CT. at 1124 Reported and signed by: Ariana Simms MD Electronically Signed: Ariana Simms MD at 11:23 EST , ADDENDUM: 09/30/21 1240 IMPRESSION: No acute intracranial process identified. Chronic small vessel ischemic gliosis. Individualized dose optimization techniques were used for this CT. at 1124 Reported and signed by: Ariana Simms MD Electronically Signed: Ariana Simms MD at 11:23 EST , Rhythm Strip Rhythm Strip: Sinus Rhythm Rate: 67 Ectopy: PAC(s) Physical Exam Const alert, oriented x3 and no apparent distress General Appearance: cooperative Nutritional Appearance: underweight HEENT normocephalic, head/scalp atraumatic and hearing grossly normal bilaterally Head and Scalp: normocephalic Eyes PERRL, EOMs intact bilaterally and conjunctivae normal Neck no lymphadenopathy and supple Resp normal respiratory effort, no retractions, no use of accessory muscles and clear to auscultation bilaterally Cardio regular rate, regular rhythm, S1 normal heart sound and S2 normal heart sound GI normal to inspection, nondistended, normoactive bowel sounds, soft to palpation, non-tender and non-distended Extremity normal to inspection, full ROM and no clubbing, cyanosis or edema Skin no rashes or lesions noted Neuro oriented x3, CN's II-XII intact bilaterally and moves all extremities Sensorium / Orientation: awake and alert Psych affect normal Assessment & Plan Assessment/Plan (1) Vertigo: PLAN: #Dizziness and vertigo likely due to dehydration, decreased intake and orthostatic hypotension * CT of the brain showed no acute intracranial process but showed chronic small vessel ischemic gliosis * This has been going on for 2 years and this current episode was similar to previous episodes was less likely due to a stroke * orthostatics were positive * patient hydrated with IVF * will check orthostatics again today * PT/OT on board * fall precautions * Encourage oral hydration with fluid * Continue IV normal saline at 125 cc/h x 2 bags. * Continue meclizine * She did have a carotid duplex in March 2021 which showed irregular calcific plaque at the proximal right internal carotid artery with less than 50% stenosis and less than 50% stenosis of the right external carotid artery and an irregular heterogeneous plaque in the proximal left internal carotid artery with less than 50% stenosis and less than 50% stenosis of the left external carotid artery with patent and antegrade vertebral arteries bilaterally and no change from carotid ultrasound in October 2018. * IV Zofran as needed * * #Elevated blood pressure * Patient's blood pressure was markedly elevated in the 200 systolic yesterday so she was given a dose of p.o. clonidine and also started on p.o. amlodipine 10 mg daily. Blood pressure has however dropped to the 90s systolic. We will therefore DC amlodipine and monitor blood pressure * IV hydralazine as needed * #Hypothyroidism: On Synthroid #Nicotine dependence: * Says she has been smoking less than a pack a day since she was 15 years. * Nicotine patch 14 mg daily. Counseled to quit. DVT prophylaxis: Lovenox CODE STATUS: DNR CCA no intubation * Charges/Coding Visit Charges OBSV E&M: 80295 Subsequent observation care L2
[2021-10-02] VITALS (11 sets, daily range): BP systolic 126–158; BP diastolic 68–92; PULSE 64–79; RESP 16–18; TEMP 36.8–37; O2SAT 92–96
[2021-10-02] MEDS: Levothyroxine 50 MCG Tablet PO (05:21)
[2021-10-02 06:35] LABS: Absolute Lymphocyte Count 1.92 X10^3/uL (0.83-4.51); Absolute Neutrophil Count 3.3 X10^3/uL (2.0-7.7); Basophil# 0.07 X10^3/uL; Basophil% 1.2 % (0-1); Eosinophil# 0.27 X10^3/uL; Eosinophils% 4.5 % (0-5); Hematocrit 36.2 % (37-47); Hemoglobin 12.3 g/dL (12.0-15.0); Lymphocyte # 1.92 X10^3/ul (0.83-4.51); Lymphocyte % 32.3 % (19-41); Mean Corpuscular Hgb 31.9 pg (27.0-32.0); Mean Platelet Vol. 9.6 fl (6.2-12.0); Monocyte# 0.39 X10^3/uL; Monocyte% 6.6 % (0-10); NRBC Flagged by Analyzer 0 % (0-5); Neutrophil # 3.29 X10^3/uL (2.7-7.7); Neutrophil % 55.2 % (47-70); Platelet Count 246 K/mm3 (150-450); RBC Distribution Width CV 13.3 % (11.6-14.6); RBC Distribution Width SD 45.9 fl (35.1-43.9); Red Blood Count 3.85 M/mm3 (4.2-5.4)
[2021-10-02 07:06] LABS: Anion Gap 4 (5-15); BUN 26 mg/dL (7-18); BUN/Creat Ratio 30.1 RATIO (10-20); Calcium,Total 8.9 mg/dL (8.5-10.1); Chloride 110 mmol/L (98-107); Creatinine, Serum 0.86 mg/dL (0.55-1.02); EST Glomerular Filtration Rate 67 mL/min (>60); Est Glom Filt Rate - Afr Amer 81 mL/min (>60); Estimated Creatinine Clearance 37.95 ml/min; Glucose 88 mg/dL (74-106); Potassium 3.6 mmol/L (3.5-5.1); Sodium Level 139 mmol/L (136-145)
[2021-10-02] MEDS: Ondansetron 4 MG/2 ML Vial IV (07:31)
[2021-10-02] MEDS: Acetaminophen 325 MG Tablet 650 MG PO (07:31)
[2021-10-02] MEDS: Aspirin E.C. 81 MG Tablet PO (09:00)
[2021-10-02] MEDS: Cholecalciferol (VIT D3) 25 MCG TABLET (1,000 UNITS) 50 MCG PO (09:00)
[2021-10-02] MEDS: Enoxaparin 40 MG/0.4 ML Syringe SC (09:00)
[2021-10-02] MEDS: amLODIPine 10 MG Tablet PO (09:00)
--- NOTE | 2021-10-02 10:05 | CASEMGMT ---
This RN MEAGHAN to room with FUCHS form, explanation done-pt voices understanding, and signs FUCHS form. Original to chart and copy to pt. Pt provided copy of MCR IP vs OBS booklet at this time. Pt states no concerns with going home at time of discharge. Pt states has WW at home that she can use as needed. Pt voices no further questions/concerns/needs. S[place]en [employer]
--- NOTE | 2021-10-02 10:34 | DS.PCM_ITS ---
Providers Date of Admission: 09/30/21 Primary Care Physician: Dr. Pooja Edwards, DO Reason For Visit: VERTIGO Diagnosis Discharge Diagnosis (1) Vertigo: Status: Acute Code(s): R42 - Dizziness and giddiness (2) HTN (hypertension): Status: Chronic Code(s): I10 - Essential (primary) hypertension (3) Orthostasis: Status: Acute Code(s): I95.1 - Orthostatic hypotension Medications at Discharge Home Medications aspirin 81 mg PO DAILY 09/30/21 ergocalciferol (vitamin D2) 2,000 unit PO DAILY 09/30/21 levothyroxine [Synthroid] 50 mcg PO DAILY 09/30/21 meclizine 25 mg PO TID PRN #14 tab 09/30/21 ondansetron 4 mg PO Q6H PRN #7 tab 09/30/21 amlodipine 10 mg PO DAILY #30 tab 10/02/21 Hospital Course Operations None Procedures None Summary of Care Provided Minutes Spent on Discharge: 41 Hospital Course: Mrs. Colunga is an 81-year-old white female who presented to the emergency department at [facility] on 10/02/2021 with a chief complaint of dizziness. Upon presentation the patient states she has had some intermittent dizziness for approximately 1 year. She indicates that she feels as if she is getting warm all over when it occurs and the room starts spinning and she is unable to ambulate. She had never had a stroke or TIA and had never been previously diagnosed with vertigo. She also admitted to eating poorly and not drinking well and that she had had about a 20 pound weight loss in the last year. The patient indicates that since her she no longer cooks meals and he used to bring her cookies and cakes which she no longer has. She states she does eat fairly regularly but eats TV dinners and fruit. She does drink boost but only 1 time a day. It was noted she had been worked up for her dizziness previously but she did have a carotid duplex in 2020, so I suspect some work-up has been performed. That duplex showed irregular calcific plaque at the proximal right internal carotid artery with less than 50% stenosis and less than 50% stenosis of the right external carotid artery and an irregular heterogeneous plaque in the proximal left internal carotid artery with less than 50% stenosis and less than 50% stenosis of the left external carotid artery with patent and antegrade vertebral arteries bilaterally and no change from carotid ultrasound in October 2018. She also underwent a CT of her brain that showed no acute intracranial process but did show chronic small vessel ischemic changes. Orthostatic vitals were done and were positive during this admission mission and she was given IV fluids. Orthostatic vitals resolved with the fluids that were given and she has had no further episodes of dizziness since then. A TSH and a free T4 were performed and were free T4 of 1.26. We did not repeat her carotid duplex as she is just had one within the last 6 to 8 months. She was seen by physical therapy and did quite well with no further recommendations for therapy. We have recommended that she immediately sit down if she does experience a dizzy episode and utilize an assistive device at these times. During her hospitalization her blood pressure was markedly elevated noted to be in the 200s systolic. With her marked elevation she was dosed with clonidine and amlodipine was started on top of this however the combination of the 2 dropped her blood pressure into the 90s systolic. The clonidine was discontinued and her amlodipine was continued with her most recent dose given at 9 AM on the day of discharge. Her follow-up blood pressure assessed approximately 2 hours after her amlodipine dosing showed a blood pressure of 146/69. She was discharged home on amlodipine with instructions to continue this medication and follow-up with her primary care physician. She was also discharged home with Zofran for any nausea she would experience with further episodes of dizziness and she had already been prescribed by meclizine by the emergency department physician. She was also seen by the dietitian during her hospitalization and we recommend that she continue with recommendations made by them. The patient indicates she already has follow-up with her primary care physician in October and we recommended follow-up in 2 weeks for hospital follow- up. She was discharged home again with meclizine, Zofran (as prescribed already by the emergency department during her visit there), amlodipine 10 mg daily, and she was instructed to increase her boost intake from 1 can daily to 3 to 4 cans daily. Discharge diagnoses: Dizziness/vertigo-resolved Orthostasis-resolved Dehydration-resolved Hypertension Mild malnutrition Hypothyroidism Vitamin D deficiency Physical Exam Narrative Patient is anxious to go home. She states she is feeling well and having no symptoms whatsoever. She states that resolved after she had IV fluids yesterday. Orthostatic vitals are now negative. Her daughter has requested a TSH and free T4 be performed as they have not been done in a while and she reports her mother has been losing weight. Patient states she is losing weight because she is not eating as much as she did when her was still alive. Const alert, oriented x3 and no apparent distress Constitutional Narrative: Thin, elderly white female sitting up in a chair at the bedside, reading a book, appears well and comfortable General Appearance: cooperative, comfortable, well kempt and well developed Orientation / Consciousness: awake Exam Limitations: no limitations Nutritional Appearance: thin HEENT normocephalic, head/scalp atraumatic, hearing grossly normal bilaterally and moist oral mucous membranes HEENT Narrative: Dentition is fair, no thrush, Mallampati is 2 Eyes PERRL, EOMs intact bilaterally and conjunctivae normal Eyes Narrative: No scleral icterus Neck no lymphadenopathy, supple and no JVD Neck Narrative: Trachea midline, no thyroid enlargement Resp normal respiratory effort, no retractions, no use of accessory muscles and clear to auscultation bilaterally Auscultation: Negative for crackles, rales, rhonchi or wheezes Cardio regular rate, regular rhythm, S1 normal heart sound, S2 normal heart sound, no murmurs, no rub, no gallops, no clicks and no JVD GI normal to inspection, nondistended, normoactive bowel sounds, soft to palpation, non-tender and non-distended Extremity no clubbing, cyanosis or edema Skin no rashes or lesions noted, no wounds, skin turgor normal and no jaundice Neuro oriented x3, CN's II-XII intact bilaterally, moves all extremities, no focal motor deficits and no sensory deficits noted Neuro Narrative: Mild generalized weakness, proximal greater than distal Sensorium / Orientation: awake, alert, oriented to person, oriented to place and oriented to time Speech: speech normal Psych affect normal Psych Narrative: Very pleasant Weight / BMI Weight Weight: 48.5 kg Body Mass Index (BMI) 17.8 ABG / Lab / Microbiology Data Result Diagrams: 10/02/21 06:05 10/02/21 06:05 Laboratory: Laboratory Results - last 24 hr 10/02/21 06:05: WBC 6.0, RBC 3.85 L, Hgb 12.3, Hct 36.2 L, MCV 94.0, MCH 31.9, MCHC 34.0 D, RDW Std Deviation 45.9 H, RDW Coeff of Stephanie 13.3, Plt Count 246, MPV 9.6, Immature Gran % (Auto) 0.200, Neut % (Auto) 55.2, Lymph % (Auto) 32.3, [place] % (Auto) 6.6, Eos % (Auto) 4.5, Baso % (Auto) 1.2 H, Absolute Neuts (auto) 3.3, Absolute Lymphs (auto) 1.92, Nucleated RBC % 0 10/02/21 06:05: Sodium 139, Potassium 3.6, Chloride 110 H, Carbon Dioxide 25.0, Anion Gap 4 L, BUN 26 H, Creatinine 0.86, Estim Creat Clear Calc 37.95, Est GFR (MDRD) Af Amer 81, Est GFR (MDRD) Non-Af 67, BUN/Creatinine Ratio 30.1 H, Glucose 88, Calcium 8.9 D/C Instructions Discharge Diet: No restrictions and - (Drink boost 3-4 times daily with or between meals) Discharge Activity: Return to Normal Activity (If experiencing dizziness please use either walker or cane and sit down immediately when this is starts) Meaningful Use Info Meaningful Use Diagnoses (Choose all that apply): None applicable Discharge Plan Admission Admit Date/Time: 09/30/21 14:03 Primary Reason for Your Visit: dizziness Attending Provider: Clarissa Hudson Primary Care Provider: Pooja Edwards Instructions Additional Instructions / Restrictions: 1. Did please use assistive device of a walker or cane if experiencing dizziness and sit down immediately if it starts. 2. Would recommend drinking boost 3-4 times daily rather than once daily to increase caloric intake. and please follow dietitian recommendations Discharge Orders/Prescriptions Prescriptions: New meclizine 25 mg tablet 25 mg PO TID PRN (Reason: dizziness) Qty: 14 RF: 0 ondansetron 4 mg tablet,disintegrating 4 mg PO Q6H PRN (Reason: nausea and vomiting) Qty: 7 RF: 0 amlodipine 10 mg Tablet 10 mg PO DAILY Qty: 30 RF: 1 Continued aspirin 81 mg Tablet,Delayed Release (Dr/Ec) 81 mg PO DAILY RF: 0 levothyroxine [Synthroid] 50 mcg tablet 50 mcg PO DAILY RF: 0 ergocalciferol (vitamin D2) 1,000 unit Capsule 2,000 unit PO DAILY RF: 0 Referrals / Follow Up: Pooja Edwards DO [Primary Care Provider] - See Referral Note (As scheduled) Disposition Disposition (needs filled in before D/C Order can be placed): Home, Self Care Charges/Coding Visit Charges Inpatient E&M: 06585 Disch Hosp
[2021-10-02 11:25] LABS: T4 Free Direct 1.26 ng/dL (0.76-1.46); Thyroid Stim Hormone (TSH) 3.49 uIU/mL (0.358-3.74)
== END 2021-10-02 10:39 | disposition home or self-care (01) ==
LOC: ED 12:04 → PCU 14:08
PROVIDERS: Admitting Provider Student in an Organized Health Care Education/Training Program; Emergency Provider Emergency Medicine; PCP Internal Medicine; Visit Provider Internal Medicine
DX: R42 Dizziness and giddiness (principal); E44.1 Mild protein-calorie malnutrition; I95.1 Orthostatic hypotension; F17.200 Nicotine dependence, unspecified, uncomplicated; E03.9 Hypothyroidism, unspecified; E55.9 Vitamin D deficiency, unspecified; I10 Essential (primary) hypertension; Z68.1 Body mass index [BMI] 19.9 or less, adult; Z79.82 Long term (current) use of aspirin; R29.700 NIHSS score 0; Z79.890 Hormone replacement therapy
CPT/HCPCS: 36415; 70450; 80048; 84439; 84443; 85025; 93005; 96361; 96372; 96374; 96376; 97162; 97166; 97530; 97535; 97802; 99218; 99285; J7030; A4216; G0378; J2405

== ENCOUNTER 2023-09-05 09:47 | Observation (INO) | payer MEDICARE, SELFPAY ==
[2023-09-05] VITALS (7 sets, daily range): BP systolic 122–137; BP diastolic 59–79; PULSE 71–87; RESP 15–19; TEMP 36.4–37.1; O2SAT 93–99; BMI 17.3
--- NOTE | 2023-09-05 10:08 | EX.ED.DYSGE1 ---
HPI History of Present Illness Chief Complaint: Dizziness Informant: patient and family Narrative Narrative: Patient comes in by EMS for complaints of dizziness. Patient states she has had a history of vertigo. She woke up this morning and when she stood up she felt dizzy. There was a sense of motion. She denies like she was going to pass out but she thought she might fall. But when I talk to her I cannot get that this is true vertigo. She states last time she had vertigo it was actually caused by dehydration and fluids fixed it. She took a meclizine this morning but it has not really helped. She does admit to having a very dry mouth. She states her p.o. intake is not good. Her sometime ago and she is down to about 100 pounds now. She does have Meals on Wheels. But she does not really eat and drink a lot. She does live alone. Current medicines are just amlodipine and Synthroid. She also is on baby aspirin. Patient does not use a cane or walker in her house. She does have a walking stick that she will take if she has to walk out of the house or across the street to get her mail. She still does occasionally drive but only to a few specific areas. [facility] Medical History (Updated 09/05/23 @ 14:[address] Miki Rg MD) HTN (hypertension) Hypothyroidism Parkinson disease Tobacco use Vertigo Home Medications aspirin 81 mg tablet,delayed release 81 mg PO DAILY heart health 09/30/21 [History Last Taken 09/04/23] levothyroxine 50 mcg tablet (Synthroid) 50 mcg PO DAILY Thyroid 09/30/21 [History Last Taken 09/04/23] meclizine 25 mg tablet 25 mg PO TID PRN dizziness #14 tabs 09/30/21 [Rx Last Taken 09/05/23] amlodipine 10 mg tablet 10 mg PO DAILY blood pressure #30 tabs 10/02/21 [Rx Last Taken 09/04/23] ergocalciferol (vitamin D2) 50 mcg (2,000 unit) tablet 50 mcg PO DAILY supplement 09/05/23 [History Last Taken 09/04/23] Allergy/AdvReac Type Severity Reaction Status Date / Time No Known Allergies Allergy Verified 09/05/23 09:48 Social History Smoking Status: Never smoker ROS ROS ED ROS Narrative A complete review of systems was performed and is negative except as documented in the history of present illness. Some specific details below. Constitutional: No recent fevers or chills. No rigors. Patient has not generally felt ill. EYE: No discharge, visual complaints, or pain. No visual field cut. Symptoms really do not specifically worsening looking 1 direction or the other. ENT: No difficulty swallowing. No swelling. No sinus pressure or pain. No nasal discharge. No change in hearing. No ear pain. CV: No chest pain, pressure or aching. No palpitations or irregular beats. Patient has not been presyncopal or syncopal. Respiratory: No trouble breathing. No cough. No wheezing. No sputum production. No pain with breathing. GI: No abdominal pain. No nausea vomiting diarrhea. No blood in stool. Poor p.o. intake recently. : No frequency dysuria or hematuria. Musculoskeletal: No recent trauma. No pains. No swelling. Skin: No rash. Nondiaphoretic. Neuro: No focal or lateralizing weakness or numbness. No difficulty with speaking. No difficulty understanding speech. No visual loss. Please see history of present illness also. She states she does feel too weak to stand. She states with her Parkinson's sometimes she does get weak like this. But she does not appear to be on any meds for her Parkinson's. Endocrine: No polyuria or polydipsia. EXAM Physical Exam Narrative Exam Narrative: CONSTITUTIONAL: Patient is nontoxic in appearance. The patient looks comfortable. Work of breathing looks normal. HEENT: No notable trauma. Mucous membranes do look rather dry. No sinus tenderness. EYES: No conjunctival injection. No proptosis. No pain with range of motion. No pallor. I am not getting any nystagmus. I have her turn left right look up and down and I cannot reproduce vertigo. It sounds like more overall weakness that she has. NECK: No meningismus. No JVD. CARDIOVASCULAR: Regular rate. Regular rhythm. No notable murmur. No JVD. RESPIRATORY: No respiratory distress. Breathing is unlabored. No wheezes. No rhonchi. No rales. No pain with a deep breath. GASTROINTESTINAL: Not distended. Bowel sounds are normal. No tenderness. No guarding. No rebound. No palpable mass. No bruit. GENITOURINARY: No tenderness over the bladder. No CVA tenderness. MUSCULOSKELETAL: Atraumatic. No peripheral edema. No tenderness. NEUROLOGICAL: Patient is alert and oriented. No focal deficit noted. NIH stroke scale is 0. SKIN: No noted rashes. No diaphoresis. No vesicles noted. No notable pallor. PSYCHIATRIC: Patient is calm. Mood is appropriate. Const Vital Signs: 09/05/23 09:49 09/05/23 09:54 09/05/23 11:25 Temperature 97.6 F L Temperature Source Temporal Pulse Rate 72 71 Respiratory Rate 16 18 Respiratory Effort Normal Non-Labored Respiratory Pattern Normal Blood Pressure 123/59 H 136/71 H Blood Pressure Mean 80 92 Pulse Ox 93 96 Oxygen Delivery Method Room Air 09/05/23 12:12 09/05/23 13:36 Temperature Temperature Source Pulse Rate 77 87 Respiratory Rate 15 Respiratory Effort Respiratory Pattern Blood Pressure 129/71 H 126/73 H Blood Pressure Mean 90 90 Pulse Ox 97 Oxygen Delivery Method MDM MDM MDM Narrative Medical decision making narrative: Patient's CBC shows minimal anemia which is not new. White count and platelets are normal. Patient's electrolytes show no marked abnormalities. BUN to creatinine ratio is high showing that there is a component of dehydration but overall creatinine is good. Her creatinine is not really changed from baseline. BUN to creatinine ratio is slightly higher than it has been before but it is not markedly changed either. Patient's glucose is normal to slightly high. Patient's TSH is normal. Patient's viral studies show all negative. These were drawn due to more of a feeling of generalized weakness than true vertigo. Patient's urinalysis shows no indication of infection at all. My independent interpretation the patient's CT scan of the head without contrast showed no acute abnormality. There was some age-related atrophy. Final reading shows chronic involutional changes of the brain. We attempted to walk the patient. She got up on the edge of the bed. There is no vertigo but she feels too weak to walk. I do not think her symptoms today are really vertigo. When the nurse went in there to walk her, the patient's daughter stated that she is not going to walk and she is not going to go home today. They are concerned that she does not eat or drink enough. She has not been eating or drinking enough since her 5 years ago. We have gotten her fluids. She has had meclizine. We will get her a little bit more fluids and see if we can get her better. Patient has finished a liter of fluid. She states she is still too weak to walk. She now does state that she gets some spinning when she gets up. Her story changes little bit [id number] between a generalized weakness and a true vertigo. She already had meclizine at home. It did not help. She is gotten fluids. I will try a very small dose of Valium as she is older and does not weigh a lot. We will get more fluids try to get her strong enough to go home. But she does live alone at home and is very scared of falling because she almost fell this morning. She did need a lot of help getting up to the toilet and was not strong enough to do this herself. We have not been able to get the patient up mobile and safely walking or even walking after fluids, meclizine, and Valium. I contacted the hospitalist that she is not safe to go home. She does live independently. Lab Data Attestation: I reviewed the patient's lab results. Labs: Laboratory Results - last 24 hr 09/05/23 09/05/23 10:10 11:24 WBC 6.7 RBC 3.93 L Hgb 11.8 L Hct 37.7 MCV 95.9 MCH 30.0 MCHC 31.3 L RDW Std Deviation 48.4 H RDW Coeff of Stephanie 13.6 Plt Count 313 MPV 9.5 Immature Gran % (Auto) 0.300 Neut % (Auto) 69.0 Lymph % (Auto) 17.0 L [place] % (Auto) 5.4 Eos % (Auto) 6.8 H Baso % (Auto) 1.5 H Absolute Neuts (auto) 4.6 Absolute Lymphs (auto) 1.14 Nucleated RBC % 0 Sodium 139 Potassium 3.7 Chloride 109 H Carbon Dioxide 25.0 Anion Gap 5 BUN 29 H Creatinine 0.89 Est GFR (MDRD) Af Amer 78 Est GFR (MDRD) Non-Af 64 BUN/Creatinine Ratio 32.7 H Glucose 119 H Calcium 9.4 TSH 2.29 Urine Color Yellow Urine Clarity Clear Urine pH 7.0 Ur Specific [place] 1.010 Urine Protein Negative Urine Glucose (UA) Normal Urine Ketones Negative Urine Occult Blood Negative Urine Nitrite Negative Urine Bilirubin Negative Urine Urobilinogen Normal Ur Leukocyte Esterase Negative Urine RBC 0 SEEN Urine WBC 0 SEEN Ur Squamous Epith Cells 0-5 SEEN Urine Bacteria 0 SEEN Urine Mucus 0 SEEN Radiography Diagnostic Testing: Clinical Impression(s) from Imaging Studies Brain CT 09/05/23 10:32 IMPRESSION: Chronic involutional changes of the brain. Electronically Signed: Pérez Cordero MD at 10:47 EST , EKG Initial EKG: Comments: My independent or potation the patient's EKG shows normal sinus rhythm. Overall rate is 77. No ventricular ectopy. Slightly low voltage throughout. No acute ST elevation or depression. CA interval, QRS duration and QTc are normal. Management Discussion w/another healthcare provider: Hospitalist Discharge Plan Triage Chief Complaint: Dizziness ED Provider: Miki Rg Dx/Rx/DC Orders Clinical Impression: Generalized weakness, Vertigo, Inability to walk, Dehydration Primary Care Provider: Pooja Edwards Disposition Disposition: Acute Care Hospital [facility]
[2023-09-05] MEDS: 0.9% Normal Saline (1000mL) 1,000 ML 1000 ML IV (10:24)
[2023-09-05 10:27] LABS: Absolute Lymphocyte Count 1.14 X10^3/uL (0.83-4.51); Absolute Neutrophil Count 4.6 X10^3/uL (2.0-7.7); Basophil% 1.5 % (0-1); Eosinophil# 0.46 X10^3/uL; Eosinophils% 6.8 % (0-5); Hematocrit 37.7 % (37-47); Hemoglobin 11.8 g/dL (12.0-15.0); Lymphocyte # 1.14 X10^3/ul (0.83-4.51); Mean Corp Hgb Conc 31.3 g/dL (32-36); Mean Corpuscular Volume 95.9 fL (81-99); Mean Platelet Vol. 9.5 fl (6.2-12.0); Monocyte# 0.36 X10^3/uL; Monocyte% 5.4 % (0-10); NRBC Flagged by Analyzer 0 % (0-5); Neutrophil # 4.64 X10^3/uL (2.7-7.7); Platelet Count 313 K/mm3 (150-450); RBC Distribution Width CV 13.6 % (11.6-14.6); RBC Distribution Width SD 48.4 fl (35.1-43.9); Red Blood Count 3.93 M/mm3 (4.2-5.4); White Blood Count 6.7 K/mm3 (4.4-11.0)
--- NOTE | 2023-09-05 10:32 | CT_ITS ---
STUDY: CT BRAIN WITHOUT CONTRAST REASON FOR EXAM: Female, 83 years old. Weakness. RADIATION DOSAGE (If Supplied By Facility): CTDIvol = ( 44.99 ) mGy, DLP = ( 779.24 ) mGycm TECHNIQUE: Transaxial CT imaging of the brain was performed without administration of intravenous contrast material. Individualized dose optimization techniques were used for this CT. COMPARISON: Comparison is made with prior study dated September 30, 2021. FINDINGS: Normal soft tissue structures. Normal calvarium. There is mild cerebral atrophy with widening of the extra-axial spaces and ventricular dilatation. There are areas of decreased attenuation within the white matter tracts of the supratentorial brain, consistent with microvascular disease changes. Normal basal ganglia and thalami. Normal brainstem. There is mild cerebellar atrophy. There is no intracranial hemorrhage. There are no findings of an acute ischemic infarction. Atherosclerotic calcification of the cavernous portions of the internal carotid arteries bilaterally. Normal visualized paranasal sinuses. CT/Brain/Head without Contrast IMPRESSION: Chronic involutional changes of the brain. Electronically Signed: Pérez Cordero MD at 10:47 EST ,
[2023-09-05 10:48] LABS: Anion Gap 5 (5-15); BUN 29 mg/dL (7-18); BUN/Creat Ratio 32.7 RATIO (10-20); Calcium,Total 9.4 mg/dL (8.5-10.1); Chloride 109 mmol/L (98-107); Creatinine, Serum 0.89 mg/dL (0.55-1.02); EST Glomerular Filtration Rate 64 mL/min (>60); Est Glom Filt Rate - Afr Amer 78 mL/min (>60); Glucose 119 mg/dL (74-106); Potassium 3.7 mmol/L (3.5-5.1); Sodium Level 139 mmol/L (136-145); Thyroid Stim Hormone (TSH) 2.29 uIU/mL (0.358-3.74)
[2023-09-05 11:29] LABS: Bacteria 0 SEEN /hpf (None Seen); Mucous, Urine 0 SEEN /hpf (<or=2+); Red Blood Cells-Urine 0 SEEN /hpf (0-5); White Blood Cells 0 SEEN /hpf (0-5)
[2023-09-05 11:30] LABS: Color, Urine Yellow (Yellow); Glucose, Dipstick Normal (Normal); Ketone-Dipstick Negative (Negative); Leukocyte Esterase-Dipstick Negative /ul (Negative); Nitrite-Dipstick Negative (Negative); Occult Blood-Urine Negative /ul (Negative); Protein-Dipstick Negative (Negative); Urine Bilirubin Dipstick Negative (Negative); Urine Clarity Clear (Clear); Urine Urobilinogen Normal (Normal)
[2023-09-05 11:38] LABS: Squamous Epithelial Cells - UA 0-5 SEEN /hpf (5-10)
[2023-09-05] MEDS: 0.9% Normal Saline (1000mL) 1,000 ML 999 ML IV (12:11)
[2023-09-05] MEDS: diazePAM 2 MG Tablet 1 MG PO (12:34)
--- NOTE | 2023-09-05 13:53 | PCM.HP.STD ---
[facility] - General General Date of Admission: 09/05/23 Date of Service: 09/05/23 Chief Complaint: Weakness and vertigo HPI Narrative LATOYA ANDERSON, is a 83-year-old female history of hypothyroidism, Parkinson's, hypertension, vertigo presented to [facility] for weakness and some vertigo. When she got up this morning she did not feel like she was going to pass out but had a vertiginous sensation and thought she might fall. Reportedly last time she had vertigo it was caused by dehydration and was resolved with fluids. Took meclizine this morning which has not really helped, does have dry mouth and has not been having very good p.o. intake, several years ago and she has lost about 100 pounds. Despite having Meals on Wheels still does not eat and drink well. Only on amlodipine and Synthroid. In the ED patient had high BUN to creatinine ratio and appeared dry but creatinine stable, concern that there is a slight level of dehydration. Lab workup otherwise unrevealing. complaints are mostly of generalized weakness and patient was given fluids and when they attempted to walk her she still felt too weak but did get a spinning sensation and given meclizine did not help earlier she was given a very small dose of Valium and attempt to help symptoms so that patient can safely go home. Patient continued to be weak and intermittently have symptoms of vertigo so hospitalist contacted for admission. Patient evaluated in ED with daughter at bedside. Patient reportedly been in her usual health until this morning when she got up and was feeling very weak, she sat on the commode and was having symptoms of vertigo that made her feel like she was going to fall over he even while sitting down, also woke up with a lower backache which she gets intermittently. Has some nausea when she has the episodes of vertigo. In the ED still feeling somewhat generally weak and has had another episode of vertigo and still get symptoms sometimes when she turns her head, this is similar to symptoms previously and reports in the past she did well with physical therapy and hydration was able to go home instead of being placed but presently patient feels too weak and unsafe to go home. Endorses that she tries to drink boost and drink water but has had weight loss, with her Parkinson's she has good days and bad days as well with her overall level of functioning and was unable to tolerate medication in the past so she is not presently taking Parkinson's medication. Denies any other acute complaints. [facility] Medical History (Updated 09/05/23 @ 14:[address] Stephanie Lynch MD) HTN (hypertension) Hypothyroidism Parkinson disease Tobacco use Vertigo Home Medications aspirin 81 mg tablet,delayed release 81 mg PO DAILY heart health 09/30/21 [History Last Taken 09/04/23] levothyroxine 50 mcg tablet (Synthroid) 50 mcg PO DAILY Thyroid 09/30/21 [History Last Taken 09/04/23] meclizine 25 mg tablet 25 mg PO TID PRN dizziness #14 tabs 09/30/21 [Rx Last Taken 09/05/23] amlodipine 10 mg tablet 10 mg PO DAILY blood pressure #30 tabs 10/02/21 [Rx Last Taken 09/04/23] ergocalciferol (vitamin D2) 50 mcg (2,000 unit) tablet 50 mcg PO DAILY supplement 09/05/23 [History Last Taken 09/04/23] Allergy/AdvReac Type Severity Reaction Status Date / Time No Known Allergies Allergy Verified 09/05/23 09:48 Social History Smoking Status: Never smoker ROS ROS Narrative General: Denies fever/chills, feels generally weak HENT: Denies headache, denies stuffy nose, denies sore throat EYES: Denies changes in vision Resp: Denies cough, denies shortness of breath Cardiac: Denies chest pain GI: Denies abdominal pain, denies changes in bowel, nausea during symptoms of vertigo : Denies changes in urination, he urinates frequently which is chronic Extremity: Denies swelling MSK: Feels generally weak Neuro: Denies any numbness/tingling, has Parkinson's tremor, intermittently having vertiginous symptoms Heme: Denies any bleeding or bruising Skin: Denies rashes Psychiatric: No complaints voiced Vital Signs Vital Signs Vital Signs: 09/05/23 09:49 09/05/23 09:54 09/05/23 11:25 Temperature 97.6 F L Temperature Source Temporal Pulse Rate 72 71 Respiratory Rate 16 18 Respiratory Effort Normal Non-Labored Respiratory Pattern Normal Blood Pressure 123/59 H 136/71 H Blood Pressure Mean 80 92 Pulse Ox 93 96 Oxygen Delivery Method Room Air 09/05/23 12:12 09/05/23 13:36 Temperature Temperature Source Pulse Rate 77 87 Respiratory Rate 15 Respiratory Effort Respiratory Pattern Blood Pressure 129/71 H 126/73 H Blood Pressure Mean 90 90 Pulse Ox 97 Oxygen Delivery Method Physical Exam Narrative General: Alert, oriented, no apparent distress HEENT: Atraumatic, normocephalic Eyes: Anicteric, normal conjunctiva, extraocular movements intact, pupils equal Neck: Supple Respiratory: normal respiratory effort Cardiovascular: Regular rate GI: Soft, nontender, nondistended Extremities: No edema Musculoskeletal: Moving all extremities symmetrically, no point tenderness over lower back Neuro: No overt focal neurological deficits, cranial nerves II through XII intact, [id number] without significant difficulty bilaterally, does have tremor in both upper extremities which is chronic Skin: No rashes appreciated Psych: Cooperative Results Lab / Micro Data 09/05/23 10:10 09/05/23 10:10 Labs: Laboratory Results - last 24 hr 09/05/23 10:10: WBC 6.7, RBC 3.93 L, Hgb 11.8 L, Hct 37.7, MCV 95.9, MCH 30.0, MCHC 31.3 L, RDW Std Deviation 48.4 H, RDW Coeff of Stephanie 13.6, Plt Count 313, MPV 9.5, Immature Gran % (Auto) 0.300, Neut % (Auto) 69.0, Lymph % (Auto) 17.0 L, [place] % (Auto) 5.4, Eos % (Auto) 6.8 H, Baso % (Auto) 1.5 H, Absolute Neuts (auto) 4.6, Absolute Lymphs (auto) 1.14, Nucleated RBC % 0, Sodium 139, Potassium 3.7, Chloride 109 H, Carbon Dioxide 25.0, Anion Gap 5, BUN 29 H, Creatinine 0.89, Est GFR (MDRD) Af Amer 78, Est GFR (MDRD) Non-Af 64, BUN/Creatinine Ratio 32.7 H, Glucose 119 H, Calcium 9.4, TSH 2.29 09/05/23 11:24: Urine Color Yellow, Urine Clarity Clear, Urine pH 7.0, Ur Specific [place] 1.010, Urine Protein Negative, Urine Glucose (UA) Normal, Urine Ketones Negative, Urine Occult Blood Negative, Urine Nitrite Negative, Urine Bilirubin Negative, Urine Urobilinogen Normal, Ur Leukocyte Esterase Negative, Urine RBC 0 SEEN, Urine WBC 0 SEEN, Ur Squamous Epith Cells 0-5 SEEN, Urine Bacteria 0 SEEN, Urine Mucus 0 SEEN Micro: Microbiology 09/05/23 10:25 Mucosa - Nose SARS-CoV-2, Influenza & RSV (PCR) - Final Imaging Radiology Impression Brain CT 09/05/23 10:32 IMPRESSION: Chronic involutional changes of the brain. Electronically Signed: Pérez Cordero MD at 10:47 EST , Assessment & Plan Assessment/Plan (1) Generalized weakness: (2) Vertigo: (3) HTN (hypertension): (4) Hypothyroidism: (5) Parkinson disease: (6) Tobacco use: PLAN: Plan # Generalized weakness in setting of Parkinson's disease -With poor p.o. intake over time and some general deconditioning -TSH within normal limits, other than slightly elevated BUN to creatinine lab workup unremarkable and UA within normal limits -Received IVF, continue gentle hydration -Encourage p.o. intake and will add Ensure -PT/OT -Case management and social work consults -Also checking B12, folate, vitamin D # Vertigo -History of vertigo, occasionally having symptoms, had another episode in ED -Refractory to valium and meclizine -Encourage hydration -IVF -Fall precautions -Meclizine as needed # Parkinson's disease -Was unable to tolerate medications in the past due to side effects -Supportive care #Hypothyroidism -Continue Synthroid # Hypertension -On home amlodipine, not hypotensive -Cont home meds #Tobacco use -Advise cessation, currently smokes about half a pack a day -Nicotine replacement available if desired #DVT ppx: Lovenox subcu Stephanie Lynch MD Charges/Coding Visit Charges Inpatient E&M: 87894 Init Hosp L1
--- NOTE | 2023-09-05 13:54 | NURSING ---
MED SURG OBS [place] GENERALIZED WEAKNESS, DEHYDRATION, INABILITY TO AMBULATE
[2023-09-05] MEDS: Lactated Ringers 1,000 ML 50 ML IV (15:51)
[2023-09-05] MEDS: Ensure Plus High Protein 120 ML LIQUID PO (17:08)
[2023-09-05] MEDS: Acetaminophen 325 MG Tablet 650 MG PO (17:09)
[2023-09-05] MEDS: Arthritis Pain Compound 60 CLICK TUBE TOPICAL (21:18)
[2023-09-05] MEDS: Meclizine HCl 25 MG Tablet PO (21:32)
[2023-09-06 03:05] VITALS: BP 143/74; PULSE 79; RESP 16; TEMP 36.5; O2SAT 96
[2023-09-06] MEDS: Arthritis Pain Compound 60 CLICK TUBE TOPICAL ×3 (05:46→21:14)
[2023-09-06] MEDS: Levothyroxine 50 MCG Tablet PO (05:46)
[2023-09-06 06:27] LABS: Absolute Lymphocyte Count 1.87 X10^3/uL (0.83-4.51); Absolute Neutrophil Count 3.3 X10^3/uL (2.0-7.7); Basophil% 1.6 % (0-1); Eosinophil# 0.46 X10^3/uL; Eosinophils% 7.4 % (0-5); Hematocrit 36.7 % (37-47); Hemoglobin 12.1 g/dL (12.0-15.0); Lymphocyte # 1.87 X10^3/ul (0.83-4.51); Lymphocyte % 30.2 % (19-41); Mean Corpuscular Hgb 30.6 pg (27.0-32.0); Mean Corpuscular Volume 92.7 fL (81-99); Mean Platelet Vol. 9.6 fl (6.2-12.0); Monocyte# 0.46 X10^3/uL; Monocyte% 7.4 % (0-10); NRBC Flagged by Analyzer 0 % (0-5); Neutrophil # 3.28 X10^3/uL (2.7-7.7); Neutrophil % 53.1 % (47-70); Platelet Count 310 K/mm3 (150-450); RBC Distribution Width CV 13.6 % (11.6-14.6); RBC Distribution Width SD 46.5 fl (35.1-43.9); Red Blood Count 3.96 M/mm3 (4.2-5.4); White Blood Count 6.2 K/mm3 (4.4-11.0)
[2023-09-06 07:03] LABS: ALB/GLOB Ratio 0.7 RATIO (0.9-2.4); AST(SGOT) 13 U/L (15-37); Alanine Aminotransfer ALT/SGPT 13 U/L (13-56); Albumin, Serum 3.1 g/dL (3.2-5.0); Alkaline Phosphatase 92 U/L (45-117); Anion Gap 4 (5-15); BUN 17 mg/dL (7-18); BUN/Creat Ratio 21.8 RATIO (10-20); Calcium,Total 9.1 mg/dL (8.5-10.1); Chloride 110 mmol/L (98-107); Creatinine, Serum 0.78 mg/dL (0.55-1.02); EST Glomerular Filtration Rate 75 mL/min (>60); Est Glom Filt Rate - Afr Amer 90 mL/min (>60); Estimated Creatinine Clearance 38.29 ml/min; Globulin 4.5 g/dL (2.2-4.2); Glucose 93 mg/dL (74-106); Potassium 3.3 mmol/L (3.5-5.1); Protein, Total 7.6 g/dL (6.4-8.2); Sodium Level 142 mmol/L (136-145)
[2023-09-06 07:43] LABS: Vitamin B12 571 pg/mL (211-911); Vitamin D,25 Hydroxy 90.1 ng/mL
--- NOTE | 2023-09-06 08:40 | CASEMGMT ---
Social Work Pt has a living will and health care power of [place] attorney naming her daughter in law Shayla Colunga on file at [facility]. RAYSHAWN Moreno
[2023-09-06 09:56] VITALS: BP 129/70; PULSE 71; RESP 18; TEMP 37; O2SAT 99
[2023-09-06] MEDS: amLODIPine 10 MG Tablet PO (09:57)
[2023-09-06] MEDS: Enoxaparin 40 MG/0.4 ML Syringe SC (09:58)
[2023-09-06] MEDS: Aspirin E.C. 81 MG Tablet PO (09:58)
[2023-09-06] MEDS: Cholecalciferol (VIT D3) 25 MCG TABLET (1,000 UNITS) 50 MCG PO (09:58)
[2023-09-06] MEDS: Potassium Chloride Oral Soln 20 MEQ/15 ML UDC 40 MEQ PO (10:51)
--- NOTE | 2023-09-06 13:08 | CASEMGMT ---
Discharge Planning A list of?HH providers including quality and resource use data and consistent with the patient's preferred geographic region, medical needs, and insurance network was created in [employer] Guide.? This list was provided to the RN MEAGHAN. Comfort Alexis, Discharge Planning Asst.
--- NOTE | 2023-09-06 14:13 | CASEMGMT ---
KURT CM into pt room, pt lying in bed in no distress. Pt states she lives in a single story home and usually uses a walking stick. Pt has a walker she can use if needed. She states she has MOW M/W/F and has prepared meals on other days of the week. She states she does her own laundry and sponge bathes. Discussed HH for pt, she declines and states she has not ever had this before. She states she has been to [facility] before and declines this as well. Pt states she feels safe to return home, she knows what her problem was- she was just dizzy. Pt is aware that if she should change her mind before dc to notify the RN CM and if she is at home to notify her PCP.
[2023-09-06 15:01] VITALS: BP 128/71; PULSE 74; RESP 18; TEMP 36.9; O2SAT 98
--- NOTE | 2023-09-06 16:04 | CASEMGMT ---
Met with patient to complete FUCHS form. FUCHS form explained to patient who voiced understanding and signed form. Original form placed in pt?s chart and copy provided to?patient. Comfort Alexis, Discharge Planning Asst
--- NOTE | 2023-09-06 16:46 | PN.HOSP_ITS ---
Subjective Subjective Still feels little dizzy and weak today Objective Data Objective Data Vital Signs: Vital Signs Temp Pulse Resp BP Pulse Ox O2 Del Method 98.5 F 74 18 128/71 H 98 Room Air 09/06/23 15:01 09/06/23 15:01 09/06/23 15:01 09/06/23 15:01 09/06/23 15:01 09/06/23 15:01 Oxygen Delivery Method Room Air Weight: 104 lb Body Mass Index (BMI) 17.3 Intake & Output: Intake and Output for Last 24 Hours 09/05/23 09/06/23 09/07/23 03:59 03:59 03:59 Intake Total 2119 706.67 / 706.67 Balance 2119 706.67 / 706.67 Lab / Micro Data 09/06/23 05:40 09/06/23 05:40 Labs: Laboratory Results - last 24 hr 09/06/23 05:40: WBC 6.2, RBC 3.96 L, Hgb 12.1, Hct 36.7 L, MCV 92.7, MCH 30.6, MCHC 33.0 D, RDW Std Deviation 46.5 H, RDW Coeff of Stephanie 13.6, Plt Count 310, MPV 9.6, Immature Gran % (Auto) 0.300, Neut % (Auto) 53.1, Lymph % (Auto) 30.2, [place] % (Auto) 7.4, Eos % (Auto) 7.4 H, Baso % (Auto) 1.6 H, Absolute Neuts (auto) 3.3, Absolute Lymphs (auto) 1.87, Nucleated RBC % 0, Sodium 142, Potass ium 3.3 L, Chloride 110 H, Carbon Dioxide 28.0, Anion Gap 4 L, BUN 17, Creatinine 0.78, Estim Creat Clear Calc 38.29, Est GFR (MDRD) Af Amer 90, Est GFR (MDRD) Non-Af 75, BUN/Creatinine Ratio 21.8 H, Glucose 93, Calcium 9.1, Total Bilirubin 0.40, AST 13 L, ALT 13, Alkaline Phosphatase 92, Total Protein 7.6, Albumin 3.1 L, Globulin 4.5 H, Albumin/Globulin Ratio 0.7 L, Vitamin B12 571, Vitamin D 25-Hydroxy 90.1, Folate 18.10 Micro: Microbiology 09/05/23 10:25 Mucosa - Nose SARS-CoV-2, Influenza & RSV (PCR) - Final Physical Exam Narrative General: Alert, Oriented, Cooperative, No apparent distress HEENT: Atraumatic, PERRLA, EOMI, Normocephalic Oral: Moist Mucosa Neck: Supple, No JVD Lungs: Diminished, Normal air movement, No rhonchi, No wheeze, No rales Cardiovascular: Regular rate, Regular Rhythm, Normal S1, Normal S2, No murmurs Abdomen: Soft, Non Tender, Non-Distended, No Hepato-splenomegaly Extremities: No edema, Capillary Refill Less than 3 Seconds Skin: No rashes, No breakdown Musculoskeletal: No Tenderness to Palpation of Joints or Extremities Neurological: No focal neurological deficits, Motor Exam 5/5 strength throughout, Sensory exam intact to light touch and pain, chronic upper extremity tremor Psych/Mental Status: Normal Affect, Appropriate Assessment & Plan Assessment/Plan (1) Generalized weakness: (2) Vertigo: (3) HTN (hypertension): (4) Hypothyroidism: (5) Parkinson disease: (6) Tobacco use: PLAN: Plan 1. Generalized weakness in the setting of Parkinson's disease/vertigo ? Poor p.o. intake over time ? Continue with IV fluids ? PT/OT ? B12 stable at 571, vitamin D at 90.1, folate of 18.1 and TSH of 2.29 ? Her vertigo in the past has been refractory to Valium and meclizine, will continue with meclizine as needed ? She is not unable to be on any Parkinson's medication secondary to tolerability 2. Hypertension ? Blood pressure stable ? Can resume her home Norvasc ? We will monitor make adjustments as necessary 3. Hypothyroidism ? Stable ? Continue with Synthroid DVT: Lovenox Charges/Coding Visit Charges Inpatient E&M: 52907 Subs Hosp L2
[2023-09-06 21:08] VITALS: BP 124/63; PULSE 86; RESP 16; TEMP 36.8; O2SAT 96
[2023-09-07 02:13] VITALS: BP 132/77; PULSE 74; RESP 18; TEMP 36.9; O2SAT 97
[2023-09-07] MEDS: Levothyroxine 50 MCG Tablet PO (06:40)
[2023-09-07] MEDS: Arthritis Pain Compound 60 CLICK TUBE TOPICAL (06:40)
[2023-09-07] MEDS: amLODIPine 10 MG Tablet PO (07:52)
[2023-09-07] MEDS: Cholecalciferol (VIT D3) 25 MCG TABLET (1,000 UNITS) 50 MCG PO (07:52)
[2023-09-07] MEDS: Aspirin E.C. 81 MG Tablet PO (07:52)
[2023-09-07] MEDS: Enoxaparin 40 MG/0.4 ML Syringe SC (07:52)
[2023-09-07] MEDS: Meclizine HCl 25 MG Tablet PO (08:08)
[2023-09-07 08:15] VITALS: BP 144/76; PULSE 79; RESP 18; TEMP 37.1; O2SAT 96
--- NOTE | 2023-09-07 10:00 | PCM.PN.HOSP ---
Subjective Subjective Doing well, dizziness is improved today. Continue with PT/OT Objective Data Objective Data Vital Signs: Vital Signs Temp Pulse Resp BP Pulse Ox O2 Del Method 98.8 F 79 18 144/76 H 96 Room Air 09/07/23 08:15 09/07/23 08:15 09/07/23 08:15 09/07/23 08:15 09/07/23 08:15 09/07/23 08:15 Oxygen Delivery Method Room Air Weight: 104 lb Body Mass Index (BMI) 17.3 Intake & Output: Intake and Output for Last 24 Hours 09/06/23 09/07/23 09/08/23 03:59 03:59 03:59 Intake Total 2119 1006.67 / 1006.67 400 / 400 Balance 2119 1006.67 / 1006.67 400 / 400 Lab / Micro Data 09/06/23 05:40 09/06/23 05:40 Micro: Microbiology 09/05/23 10:25 Mucosa - Nose SARS-CoV-2, Influenza & RSV (PCR) - Final Physical Exam Narrative General: Alert, Oriented, Cooperative, No apparent distress HEENT: Atraumatic, PERRLA, EOMI, Normocephalic Oral: Moist Mucosa Neck: Supple, No JVD Lungs: Diminished, Normal air movement, No rhonchi, No wheeze, No rales Cardiovascular: Regular rate, Regular Rhythm, Normal S1, Normal S2, No murmurs Abdomen: Soft, Non Tender, Non-Distended, No Hepato-splenomegaly Extremities: No edema, Capillary Refill Less than 3 Seconds Skin: No rashes, No breakdown Musculoskeletal: No Tenderness to Palpation of Joints or Extremities Neurological: No focal neurological deficits, Motor Exam 5/5 strength throughout, Sensory exam intact to light touch and pain, chronic upper extremity tremor Psych/Mental Status: Normal Affect, Appropriate Assessment & Plan Assessment/Plan (1) Generalized weakness: (2) Vertigo: (3) HTN (hypertension): (4) Hypothyroidism: (5) Parkinson disease: (6) Tobacco use: PLAN: Plan 1. Generalized weakness in the setting of Parkinson's disease/vertigo ? Poor p.o. intake over time ? Continue with IV fluids ? PT/OT, she does appear little bit better today. Will await evaluation by PT to decide disposition ? B12 stable at 571, vitamin D at 90.1, folate of 18.1 and TSH of 2.29 ? Her vertigo in the past has been refractory to Valium and meclizine, will continue with meclizine as needed ? She is not unable to be on any Parkinson's medication secondary to tolerability 2. Hypertension ? Blood pressure stable ? Can resume her home Norvasc ? We will monitor make adjustments as necessary 3. Hypothyroidism ? Stable ? Continue with Synthroid DVT: Lovenox Charges/Coding Visit Charges Inpatient E&M: 82192 Subs Hosp L2
--- NOTE | 2023-09-07 11:32 | DCINST_ITS ---
Discharge Instructions Diet Discharge Diet: No restrictions Activity Discharge Activity: Return to Normal Activity Dressing / Incision Call your doctor if you observe: Fever of 101 or Higher, Shortness of breath, Dizziness, Fainting spells, Swelling in the ankles, Chest pain and Increased palpitations (irregular heartbeat) Follow Up Care Test Results: Test results from this visit will be discussed in further detail at your follow- up appointment, if applicable. Discharge Plan Admission Admit Date/Time: 09/05/23 13:53 Attending Provider: Oscar Norwood Primary Care Provider: Pooja Lund Consulting Providers: Stephanie Lynch Instructions Additional Instructions / Restrictions: Follow-up with your PCP in 3 to 5 days, I do recommend that when you start to stand up from either laying down position or sitting position that you give yourself anywhere between 10 to 15 seconds to acclimate to the change in position prior to ambulating, this will assist in preventing further dizziness as you walk and decrease your risk of falling. Discharge Orders/Prescriptions Prescriptions: Continued aspirin 81 mg Tablet,Delayed Release (Dr/Ec) 81 mg PO DAILY levothyroxine [Synthroid] 50 mcg tablet 50 mcg PO DAILY meclizine 25 mg tablet 25 mg PO TID PRN (Reason: dizziness) Qty: 14 0RF amlodipine 10 mg Tablet 10 mg PO DAILY Qty: 30 1RF ergocalciferol (vitamin D2) 50 mcg (2,000 unit) tablet 50 mcg PO DAILY Patient Comments: pt states that she gets a complex vitamin D from dr. lund Referrals / Follow Up: Pooja Lund DO [Primary Care Provider] - Within 1 Week Disposition Disposition (needs filled in before D/C Order can be placed): Home, Self Care
[2023-09-07 12:24] VITALS: BP 131/71; PULSE 76; RESP 18; TEMP 36.7; O2SAT 95
--- NOTE | 2023-09-07 12:57 | NURSING ---
assisted pt with phone call to her daughter in law for ride home they will come in about 2 hrs as they had just spoke w/ pt and pt told them she was staying another night pt updated on time for ride and is currently eating lunch, she expressed concern that the doctor who rounded had not told her she would be d/c she expressed that she will need script for antivert sent to [facility] and that request was submitted to Dr pringle
--- NOTE | 2023-09-07 14:14 | DS.PCM_ITS ---
Providers Date of Admission: 09/05/23 Primary Care Physician: Dr. Pooja Edwards, DO Reason For Visit: GENERALIZED WEAKNESS Diagnosis Discharge Diagnosis (1) Generalized weakness: Status: Acute Code(s): R53.1 - Weakness (2) Vertigo: Status: Acute Code(s): R42 - Dizziness and giddiness (3) HTN (hypertension): Status: Chronic Code(s): I10 - Essential (primary) hypertension (4) Hypothyroidism: Status: Acute Code(s): E03.9 - Hypothyroidism, unspecified (5) Parkinson disease: Status: Acute Code(s): G20.A1 - Parkinson's disease without dyskinesia, without mention of fluctuations (6) Tobacco use: Status: Acute Code(s): Z72.0 - Tobacco use Medications at Discharge Home Medications aspirin 81 mg tablet,delayed release 81 mg PO DAILY heart health 09/30/21 levothyroxine 50 mcg tablet (Synthroid) 50 mcg PO DAILY Thyroid 09/30/21 amlodipine 10 mg tablet 10 mg PO DAILY blood pressure #30 tabs 10/02/21 ergocalciferol (vitamin D2) 50 mcg (2,000 unit) tablet 50 mcg PO DAILY supplement 09/05/23 meclizine 25 mg tablet 25 mg PO TID PRN dizziness #14 tabs 09/07/23 Hospital Course Operations None Procedures None Summary of Care Provided Minutes Spent on Discharge: 32 Hospital Course: Per HPI: LATOYA ANDERSON, is a 83-year-old female history of hypothyroidism, Parkinson's, hypertension, vertigo presented to [facility] for weakness and some vertigo. When she got up this morning she did not feel like she was going to pass out but had a vertiginous sensation and thought she might fall. Reportedly last time she had vertigo it was caused by dehydration and was resolved with fluids. Took meclizine this morning which has not really helped, does have dry mouth and has not been having very good p.o. intake, several years ago and she has lost about 100 pounds. Despite having Meals on Wheels still does not eat and drink well. Only on amlodipine and Synthroid. In the ED patient had high BUN to creatinine ratio and appeared dry but creatinine stable, concern that there is a slight level of dehydration. Lab workup otherwise unrevealing. complaints are mostly of generalized weakness and patient was given fluids and when they attempted to walk her she still felt too weak but did get a spinning sensation and given meclizine did not help earlier she was given a very small dose of Valium and attempt to help symptoms so that patient can safely go home. Patient continued to be weak and intermittently have symptoms of vertigo so hospitalist contacted for admission. Patient evaluated in ED with daughter at bedside. Patient reportedly been in her usual health until this morning when she got up and was feeling very weak, she sat on the commode and was having symptoms of vertigo that made her feel like she was going to fall over he even while sitting down, also woke up with a lower backache which she gets intermittently. Has some nausea when she has the episodes of vertigo. In the ED still feeling somewhat generally weak and has had another episode of vertigo and still get symptoms sometimes when she turns her head, this is similar to symptoms previously and reports in the past she did well with physical therapy and hydration was able to go home instead of being placed but presently patient feels too weak and unsafe to go home. Endorses that she tries to drink boost and drink water but has had weight loss, with her Parkinson's she has good days and bad days as well with her overall level of functioning and was unable to tolerate medication in the past so she is not presently taking Parkinson's medication. Denies any other acute complaints. Hospital course: 1. Generalized weakness in the setting of Parkinson's disease with vertigo? 83-year-old female with history of Parkinson disease unfortunate she cannot take any medication secondary to intolerability presents to the hospital with a recurrent episode of dizziness. She had significant dizziness when she was trying to get out of bed at home and presented to the hospital she said it felt a little bit different than her previous episode of vertigo and it did not improve with the meclizine like it had before. It was felt that she was little bit dehydrated as she indicated that she was not eating or drinking very well prior to the event. She was given a little bit of IV fluids in the ER on arrival and has significant improvement over the next 24 to 48 hours. On the day of discharge she was able to ambulate with physical therapy with the assist of a wheeled walker. I discussed with her the plan for discharge today she expressed understanding of the risk benefits of going home and was okay with going home today. The rest of her workup was unremarkable and when the topic was discussed with her about the need for possibly assisted living she requested to stay at her home, I discussed with her the need for a walker she said that she did not want 1 I even discussed with her the possibility of having railings installed in her house to assist with mobility which she refused. Since she appears to be back to her baseline and the fact that she is refusing any further assistance or intervention she was discharged home with a prescription for meclizine and a discussion about if and when to return to the hospital. 2. Hypertension, hypothyroidism are chronic medical conditions which complicate her care. Her home medications were continued where appropriate Weight / BMI Weight Weight: 104 lb Body Mass Index (BMI) 17.3 ABG / Lab / Microbiology Data 09/06/23 05:40 09/06/23 05:40 Microbiology: Microbiology 09/05/23 10:25 Mucosa - Nose SARS-CoV-2, Influenza & RSV (PCR) - Final D/C Instructions Discharge Diet: No restrictions Call your doctor if you observe: Fever of 101 or Higher, Shortness of breath, Dizziness, Fainting spells, Swelling in the ankles, Chest pain and Increased palpitations (irregular heartbeat) Meaningful Use Info Meaningful Use Diagnoses (Choose all that apply): None applicable Discharge Plan Admission Admit Date/Time: 09/05/23 13:53 Attending Provider: Oscar Norwood Primary Care Provider: Pooja Edwards Consulting Providers: Stephanie Lynch Instructions Additional Instructions / Restrictions: Follow-up with your PCP in 3 to 5 days, I do recommend that when you start to stand up from either laying down position or sitting position that you give yourself anywhere between 10 to 15 seconds to acclimate to the change in position prior to ambulating, this will assist in preventing further dizziness as you walk and decrease your risk of falling. Discharge Orders/Prescriptions Prescriptions: Continued aspirin 81 mg Tablet,Delayed Release (Dr/Ec) 81 mg PO DAILY levothyroxine [Synthroid] 50 mcg tablet 50 mcg PO DAILY amlodipine 10 mg Tablet 10 mg PO DAILY Qty: 30 1RF ergocalciferol (vitamin D2) 50 mcg (2,000 unit) tablet 50 mcg PO DAILY Patient Comments: pt states that she gets a complex vitamin D from dr. edwards meclizine 25 mg tablet 25 mg PO TID PRN (Reason: dizziness) Qty: 14 0RF Referrals / Follow Up: Pooja Edwards DO [Primary Care Provider] - Within 1 Week Disposition Disposition (needs filled in before D/C Order can be placed): Home, Self Care Charges/Coding Visit Charges Inpatient E&M: 41765 Disch Hosp >30min
== END 2023-09-07 14:22 | disposition home or self-care (01) ==
LOC: ED 13:48 → MS3 14:08
PROVIDERS: Admitting Provider Internal Medicine; Emergency Provider Emergency Medicine; PCP Internal Medicine; Visit Provider Family Medicine
DX: R53.1 Weakness (principal); E86.0 Dehydration; Z79.82 Long term (current) use of aspirin; R11.0 Nausea; D64.9 Anemia, unspecified; E03.9 Hypothyroidism, unspecified; R26.2 Difficulty in walking, not elsewhere classified; G20.A1 Parkinson's disease without dyskinesia, without mention of fluctuations; I10 Essential (primary) hypertension; Z79.890 Hormone replacement therapy; Z79.899 Other long term (current) drug therapy; R42 Dizziness and giddiness; F17.200 Nicotine dependence, unspecified, uncomplicated; M54.50 Low back pain, unspecified
CPT/HCPCS: 36415; 70450; 80048; 80053; 81001; 82306; 82607; 82746; 84443; 85025; 87631; 92610; 93005; 96360; 96361; 96372; 97110; 97116; 97162; 97166; 97802; 99221; 99285; J7030; J7120; A4216; G0378

== ENCOUNTER → 2025-06-24 | Outpatient (CLI) | payer MEDICARE, SELFPAY ==
[2025-06-24 14:54] LABS: Mucous, Urine 0 SEEN /hpf (<or=2+)
[2025-06-24 17:43] LABS: Hematocrit 37.9 % (37-47); Hemoglobin 12.1 g/dL (12.0-15.0); Immature Granulocytes Count 0.010 X10^3/uL (0.0-0.0); Mean Corp Hgb Conc 31.9 g/dL (32-36); Mean Corpuscular Volume 94.5 fL (81-99); Mean Platelet Vol. 10.1 fl (6.2-12.0); NRBC Flagged by Analyzer 0 % (0-5); Platelet Count 274 K/mm3 (150-450); RBC Distribution Width CV 14.0 % (11.6-14.6); RBC Distribution Width SD 48.7 fl (35.1-43.9); Red Blood Count 4.01 M/mm3 (4.2-5.4); White Blood Count 7.0 K/mm3 (4.4-11.0)
[2025-06-24 17:57] LABS: Color, Urine Yellow (Yellow); Glucose, Dipstick Normal (Normal); Ketone-Dipstick Negative (Negative); Leukocyte Esterase-Dipstick 25 /ul (Negative); Nitrite-Dipstick Negative (Negative); Occult Blood-Urine 10 /ul (Negative); Protein-Dipstick 30 mg/dl (Negative); Specific Gravity, Urine 1.015 (1.002-1.030); Urine Bilirubin Dipstick Negative (Negative)
[2025-06-24 18:03] LABS: Creatinine, Urine (random) 139.00 mg/dL (28.00-217.00); Microalbumin,Random Urine 29.3 mg/L (<20 mg/L)
[2025-06-24 18:26] LABS: Red Blood Cells-Urine 0-5 SEEN /hpf (0-5); Squamous Epithelial Cells - UA 5-10 SEEN /hpf (5-10)
[2025-06-24 18:34] LABS: AST(SGOT) 20 U/L (<=31); Alanine Aminotransfer ALT/SGPT 10 U/L (<=34); Albumin, Serum 4.2 g/dL (3.4-4.8); Alkaline Phosphatase 114 U/L (35-104); Anion Gap 13 (5-15); BUN 32 mg/dL (4-19); BUN/Creat Ratio 27.8 RATIO (10-20); Calcium,Total 9.9 mg/dL (7.6-11.0); Carbon Dioxide 26.0 mmol/L (21.0-32.0); Chloride 101 mmol/L (98-108); Cholesterol 177 mg/dL (<=200); Globulin 4.5 g/dL (2.2-4.2); Glucose 100 mg/dL (70-99); Low Density Lipoprotein Calc. 89 mg/dL; Potassium 4.3 mmol/L (3.3-5.1); Triglycerides 66 mg/dL; Very Low Density Lipoprotein 13 mg/dL (5-40); Vitamin D,25 Hydroxy 111.0 ng/mL (30-100); cholesterol:hdl ratio screen 2.36
== END | disposition home or self-care (01) ==
LOC: MTLAB 14:50
PROVIDERS: PCP Internal Medicine; Referring Provider Internal Medicine; Visit Provider Internal Medicine
DX: I10 Essential (primary) hypertension (principal); E78.00 Pure hypercholesterolemia, unspecified; E03.9 Hypothyroidism, unspecified; E55.9 Vitamin D deficiency, unspecified
CPT/HCPCS: 36415; 80053; 80061; 81001; 82043; 82306; 82570; 84443; 85025